=== PATIENT | male | born 1950 | race Two or more races ===

== ENCOUNTER → 2020-08-03 09:28 | Outpatient (BNVA) | payer MEDICARE, SELFPAY | PROVIDERS: PCP Internal Medicine Geriatric Medicine; Visit Provider Internal Medicine Cardiovascular Disease | DX: I48.0 Paroxysmal atrial fibrillation (principal); I34.0 Nonrheumatic mitral (valve) insufficiency; I10 Essential (primary) hypertension; Z79.01 Long term (current) use of anticoagulants | CPT/HCPCS: 93005; 99212 ==

== ENCOUNTER 2020-08-17 08:22 | Outpatient (REF) | payer MEDICARE, SELFPAY ==
[2020-08-17 10:35] LABS: Alanine Aminotransferase 30 U/L (0-40); Albumin Level 3.8 g/dL (3.5-5.0); Alkaline Phosphatase 79 U/L (39-117); Anion Gap 12 (12-20); Aspartate Amino Transferase 18 U/L (5-37); Bilirubin Total 0.5 mg/dL (0.0-1.0); Blood Urea Nitrogen 27 mg/dL (9-16); Calcium 8.4 mg/dL (8.4-10.2); Carbon Dioxide 25 mmol/L (22-29); Chloride 109 mmol/L (96-108); Estimated Glomerular Filt Rate 33; Glucose Random 97 mg/dL (60-115); Potassium 4.9 mmol/l (3.3-5.1); Sodium 141 mmol/L (135-145); Total Protein 6.6 g/dL (6.5-8.0); Uric Acid 9.9 mg/dL (3.4-7.0)
== END 2020-08-17 08:23 | disposition home or self-care (01) ==
LOC: HO.LAB 08:22
PROVIDERS: PCP Internal Medicine Geriatric Medicine; Visit Provider Student in an Organized Health Care Education/Training Program
DX: M10.9 Gout, unspecified (principal); M25.562 Pain in left knee
CPT/HCPCS: 36415; 80053; 84550

== ENCOUNTER → 2020-08-21 13:49 | Outpatient (BNVA) | payer MEDICARE, SELFPAY | PROVIDERS: PCP Internal Medicine Geriatric Medicine; Referring Provider Internal Medicine Geriatric Medicine; Visit Provider Student in an Organized Health Care Education/Training Program | DX: M1A.39X0 Chronic gout due to renal impairment, multiple sites, without tophus (tophi) (principal) | CPT/HCPCS: Q3014 ==

== ENCOUNTER 2020-09-01 08:14 | Outpatient (REF) | payer MEDICARE, SELFPAY ==
[2020-09-01 08:40] LABS: MANUAL DIFF FLAG NO
[2020-09-01 08:44] LABS: Basophils Percent Auto 0.9 % (0-2); Eosinophils Absolute Auto 0.1 X10*3/uL (0.0-0.4); Eosinophils Percent Auto 2.3 % (0-4); Hematocrit 36.3 % (42-52); Hemoglobin 11.9 g/dl (14.0-18.0); Imm Gran Abs Auto 0.01 X10*3/uL (0.00-0.03); Imm Gran Pct Auto 0.2 % (0.0-0.4); Lymphocytes Absolute Auto 1.2 X10*3/uL (1.2-4.9); Lymphocytes Percent Auto 28.4 % (20-40); Mean Corpuscular HGB Conc 32.8 g/dl (31.0-36.0); Mean Corpuscular Hemoglobin 31.2 pg (27.0-33.0); Mean Platelet Volume 10.7 fL (9.4-12.4); Monocytes Absolute Auto 0.4 X10*3/uL (0.1-1.2); Monocytes Percent Auto 9.7 % (2-11); Neutrophils Absolute Auto 2.5 X10*3/uL (2.0-8.3); Neutrophils Percent Auto 58.5 % (45-73); Platelet Count 165 X10*3/uL (160-400); Red Blood Count 3.82 X10*6/uL (4.60-5.80); Red Cell Distribution Width 12.8 % (11.0-16.0); White Blood Count 4.3 X10*3/uL (4.8-10.8)
[2020-09-01 09:23] LABS: Albumin Level 3.8 g/dL (3.5-5.0); Anion Gap 11 (12-20); Blood Urea Nitrogen 22 mg/dL (9-16); Calcium 8.3 mg/dL (8.4-10.2); Carbon Dioxide 27 mmol/L (22-29); Chloride 108 mmol/L (96-108); Estimated Glomerular Filt Rate 34; Magnesium 1.5 mg/dL (1.6-2.6); Phosphorus 3.7 mg/dL (2.7-4.5); Potassium 4.3 mmol/l (3.3-5.1); Sodium 142 mmol/L (135-145)
[2020-09-01 09:30] LABS: Glucose Urine UA NEG (NEG); Leukocyte Esterase Urine NEG (NEG); Nitrite Urine NEG (NEG); Urine Blood NEG (NEG); Urine Ketones NEG (NEG); Urine Protein 1+ MG/DL (NEG-TRACE)
[2020-09-01 09:33] LABS: Appearance Urine CLEAR; Color Urine YELLOW
[2020-09-01 09:53] LABS: Creatinine Urine 106.62 mg/dL; Protein/Creatinine Ratio, Ur 0.29 (<0.2); Total Protein Urine Random 31 mg/dL (<12)
[2020-09-01 09:54] LABS: Creatinine Urine 106.45 mg/dL; Microalbum/Creatinine Ratio Ur 189.7 ug/mg cr; Total Protein Urine Random 31 mg/dL (<12)
[2020-09-01 10:00] LABS: RBC Urine 0-2 /HPF (0); Squamous Epithelial Cell Urine 1+ /LPF; WBC Urine 0-2 /HPF (0-4)
[2020-09-01 10:01] LABS: Renal Epithelial Cells Urine TRACE /LPF
[2020-09-01 10:54] LABS: Renal w Reflex Lab Use Only Order verified
[2020-09-02 15:52] LABS: Calcium (PTHI) 8.5 mg/dL (8.6-10.3); PTHI 101 pg/mL (14-64)
== END 2020-09-01 08:15 | disposition home or self-care (01) ==
LOC: HO.LAB 08:14
PROVIDERS: Absent Provider Student in an Organized Health Care Education/Training Program; PCP Internal Medicine Geriatric Medicine; Visit Provider Internal Medicine Nephrology
DX: I13.0 Hypertensive heart and chronic kidney disease with heart failure and stage 1 through stage 4 chronic kidney disease, or unspecified chronic kidney disease (principal); I50.9 Heart failure, unspecified; N18.4 Chronic kidney disease, stage 4 (severe); N20.0 Calculus of kidney; N28.1 Cyst of kidney, acquired; M10.9 Gout, unspecified
CPT/HCPCS: 36415; 80051; 81001; 82040; 82043; 82306; 82310; 82565; 83735; 83970; 84100; 84156; 84520; 84550; 85025

== ENCOUNTER 2020-10-09 09:47 | Outpatient (REF) | payer MEDICARE, SELFPAY ==
--- NOTE | 2020-10-13 08:11 | MHC.AU.P13 ---
Adult Audiological Evaluation Date of Visit: 10/09/20 Volunteer Services Assistant Used: Palestinian- In Person Reason for Appointment: Audiologic evaluation due to decreased hearing ability. Colby reports he was evaluated by Goggles Assembler Dr. Garg a few years ago. Hearing aids were recommended, but never pursued. Colby also notes he has a long-standing history of sinus problems with significant congestion which has not been treated. Does patient feel they have a hearing loss?: Yes If Yes, Which Ear?: Both Ears Has hearing been tested previously?: Yes Previous Hearing Test Results: 11/02/2017 Dr. Garg Normal to borderline normal hearing thresholds at 250-2000 Hz sloping to a moderate high frequency hearing loss. Bone conduction testing was not performed so the type of hearing loss is not known. Hearing Handicap Inventory: HHIE SCORE: 32 Based on HHIE score, patient has: Severe perceived hearing handicap Ear History: Family History of Hearing Loss?: Yes Recent Ear Infections: Both Ears History of Ear Wax Buildup: Both Ears Ear used on the phone: Right Ear Blocked/Full Sensation in Ear(s): Both Ears History of occupational noise exposure?: No Medical History: Medical History: Cancer Heart Problems High Blood Pressure Thyroid Disease Chronic Kidney Disease Medication List: Veltassa, Metoproolol, Xarelto, Citracal, Multaq, Atorvastatin, Doxazosin, Lorazepam, Vitamin D, Acetaminophen, Flonase (as needed) Otoscopy: Right Ear: Unremarkable Left Ear: Unremarkable Tympanometry: Tympanometry performed due to: To assess integrity of the middle ear system Right Ear: Normal Middle Ear System (Type A) Left Ear: Normal Middle Ear System (Type A) Otoacoustic Emissions Right Ear Results: Not performed at today's visit. Left Ear Results: Not performed at today's visit. Hearing Evaluation: Transducer(s) Used: Insert Earphones Bone Conduction Method: Conventional Audiometry Stimuli Used: Pure Tones Right Ear: Description of Hearing: Mild rising to borderline normal conductive hearing loss Left Ear: Description of Hearing: Mild rising to borderline normal conductive hearing loss Speech Recognition Threshold (SRT): Method Used: Monitored Live Voice Stimuli Used: Spondee Words Right Ear: 20 dB HL Left Ear: 20 dB HL Word Discrimination: Method: Monitored Live Voice Word Lists Used: Lista Bisil?bica (Palestinian) Right Ear: 100% at 60 dB HL Left Ear: 100% at 60 dB HL Comparison: Compared to most recent evaluation: Compared to 2018, the low frequency thresholds have decreased and the high frequencies have improved overall 10-15 dB. Recommendations: Audiological re-evaluation in one year. Will send a reminder card. Due to the conductive hearing loss and history of significant congestion and sinus problems, medical consultation/treatment with an Goggles Assembler is advised. Hearing aids are not recommended at this time. Communication strategies were discussed. Diagnosis: Primary Diagnosis: H90.0 Conductive Hearing Loss, Bilateral Services Performed: Comprehensive Audiological Evaluation (CPT 72077) Tympanometry (CPT 73180) Signature: Provider: Deisy Bajwa, CCC-A
== END 2020-10-09 09:48 | disposition home or self-care (01) ==
LOC: HO.SH 09:47
PROVIDERS: Visit Provider Internal Medicine Geriatric Medicine
DX: H90.0 Conductive hearing loss, bilateral (principal)
CPT/HCPCS: 92557; 92567

== ENCOUNTER → 2020-10-27 09:43 | Outpatient (BNVA) | payer MEDICARE, SELFPAY | PROVIDERS: PCP Internal Medicine Geriatric Medicine; Visit Provider Internal Medicine Cardiovascular Disease | DX: R94.31 Abnormal electrocardiogram [ECG] [EKG] (principal) | CPT/HCPCS: 93005 ==

== ENCOUNTER → 2021-01-06 09:06 | Outpatient (REF) | payer MEDICARE, SELFPAY ==
--- NOTE | 2021-01-06 09:09 | CA_ITS ---
Transthoracic Echocardiogram Patient (Last, First, Middle): Colby Hardin, Gender: Male Date of : 1950 Age: 70 Procedure Date: 01/06/2021 Procedure Type: Transthoracic Echocardiogram Location: OP Height: 175.26 cm Weight: 110.68 kg BSA: 2.25 m2 Heart Rate: bpm BP: 159 / 88 mmHg Cell Maker: MEGAN Referring MD: Rangel Funez MD Peer Health Promoter: Rangel Funez MD Symptoms: I48.0 - Paroxysmal atrial fibrillation Study Quality: Fair ECG Rhythm: Sinus Conclusions: - 1. Low normal LV systolic function with grade 1 diastolic dysfunction 2. Mild aortic regurgitation 3. At least moderate eccentric mitral regurgitation 4. Normal RV systolic pressure 5. No pericardial effusion Findings Left Ventricle Normal left ventricular cavity size. There is normal left ventricular wall thickness. The left ventricular systolic function is low normal. The visually estimated ejection fraction is between 50-55%. Spectral Doppler is indicative of an impaired relaxation filling pattern. E/E prime ratio is <8, consistent with normal filling pressures. Right Ventricle Normal right ventricular cavity size and systolic function. Atria The left atrium is likely dilated. Interatrial shunt cannot be excluded. The right atrium is normal in size. Aortic Valve The aortic valve structure and function is likely normal. There is no aortic valve stenosis. There is mild aortic valve regurgitation. Mitral Valve There is mild anterior and posterior mitral leaflet thickening. There is moderate mitral valve regurgitation. The mitral regurgitation jet is directed anteriorly. There is no mitral valve stenosis. Pulmonic Valve The pulmonic valve was not well visualized. Tricuspid Valve Likely normal tricuspid valve structure and function. There is trace tricuspid valve regurgitation. The right ventricular systolic pressure is normal. The right ventricular systolic pressure is 29 mmHg. Normal right atrial pressure. There is no evidence of pulmonary hypertension. Great Vessels The pulmonary artery was not well visualized. There is mild dilatation of the ascending aorta measuring 3.94 cm. Venous The inferior vena cava is normal in size and collapses greater than 50% with inspiration. Pericardium/Pleural There is no evidence of pericardial effusion. Prior Study Comparison No significant change compared to prior study. Measurements 2D Linear Measurements IVSd: 0.77 0.6-0.9/0.6-1.0 cm LVIDd: 5.54 3.9-5.3/4.2-5.9 cm LVIDs: 3.99 2.0-3.6 cm LVPWd: 1.03 0.7-1.1 cm Ao Root: 3.17 2.1-3.5 cm LV Mass: 235.05 67-162/88-224 g LVOT Diam: 2.16 3.0+(-)1.3 cm Mitral Valve MV Pk E: 0.82 MV PK A: 0.83 MV Decel Time: 173.75 E/A: 0.99 Decel [place]: 4.71 Aortic Valve AoV Pk Freedom: 1.08 AoV Pk Grad: 4.71 AI Pk Freedom: 3.08 AI [place]: 1.77 LVOT LVOT Pk Freedom: 0.93 LVOT Mn Freedom: 0.62 LVOT VTI: 0.20 LVOT Pk Grad: 3.48 LVOT Mn Grad: 1.75 LVOT Diam: 2.16 LVOT Area: 3.68 Diastolic Function MV Pk E: 0.82 MV Pk A: 0.83 E/A: 0.99 Tricuspid Valve TR Pk Freedom: 2.58 TR Pk Grad: 26.65 RA Press: 3.00 RVSP: 29.00 Great Vessels Aorta Ao Root-2D: 3.17 2.0-3.7 cm Ao Asc: 3.94 2.1-3.4 cm Updated in Other Vendor System with Status of Final Rangel Funez MD electronically signed on 01/06/2021 3:15:00 PM with status of Final
== END ==
LOC: HO.CARD 09:06
PROVIDERS: Visit Provider Internal Medicine Cardiovascular Disease
DX: I48.0 Paroxysmal atrial fibrillation (principal); I34.0 Nonrheumatic mitral (valve) insufficiency; I10 Essential (primary) hypertension
CPT/HCPCS: 93306

== ENCOUNTER 2021-01-19 09:40 | Emergency (ER) | payer MEDICARE, SELFPAY ==
[2021-01-19 10:06] VITALS: BP 186/106; BMI 36.1
--- NOTE | 2021-01-19 11:26 | ED_ITS ---
HPI - General Adult General Chief complaint: Extremity Injury, Lower <CRISTI Sanchez - Last Filed: 01/19/21 12:21> Stated complaint: Ankle Inflammation <CRISTI Sanchez Last Filed: 01/19/21 12:21> Time Seen by Provider: 01/19/21 11:25 <CRISTI Sanchez Last Filed: 01/19/21 12:21> Source: patient <CRISTI Sanchez - Last Filed: 01/19/21 12:21> Mode of arrival: ambulatory <CRISTI Sanchez Last Filed: 01/19/21 12:21> Limitations: no limitations <CRISTI Sanchez Last Filed: 01/19/21 12:21> History of Present Illness HPI narrative: 70 y/o male with history of paroxysmal atrial fibrillation on Xarelto, CKD, mitral regurgitation, history of gout in his left foot & HTN who presents to the ED with 4 days of left ankle pain and swelling. No trauma or injury. He has had several episodes of gout in his left foot in the past, usually 1-2 episodes per year. He was previously on medication for this however he did not tolerate it. He follows with a Teenage Program Director. He denies any objective fevers but has been hot and cold. He states he was started on Prednisone 3 days ago with no improvement. <CRISTI Sanchez - Last Filed: 01/19/21 12:21> MD complaint: left ankle pain and swelling <CRISTI Sanchez - Last Filed: 01/19/21 12:21> Onset (ago): day(s) (4) <CRISTI Sanchez - Last Filed: 01/19/21 12:21> Location: left and lower extremity <CRISTI Sanchez Last Filed: 01/19/21 12:21> Radiation: non-radiation <CRISTI Sanchez Last Filed: 01/19/21 12:21> Severity: severe and similar to prior episodes <CRISTI Sanchez Last Filed: 01/19/21 12:21> Severity scale (1-10): 8 <CRISTI Sanchez - Last Filed: 06/15/21 12:21> Quality: aching and sharp <CRISTI Sanchez - Last Filed: 01/19/21 12:21> Pain Consistency: constant <CRISTI Sanchez Last Filed: 01/19/21 12:21> Relieving factors: rest <CRISTI Sanchez - Last Filed: 01/19/21 12:21> Exacerbating factors: movement <CRISTI Sanchez Last Filed: 01/19/21 12:21> Associated symptoms: denies other symptoms <CRISTI Sanchez Last Filed: 01/19/21 12:21> Treatments prior to arrival: other (prednisone) <CRISTI Sanchez Last Filed: 01/19/21 12:21> Related Data Home medications: Home Medications Medication Instructions Recorded Confirmed acetaminophen 500 mg tablet 0 mg PO 08/03/20 01/28/21 atorvastatin 20 mg tablet 20 mg PO DAILY 08/03/20 01/28/21 benzonatate 100 mg capsule 100 mg PO 08/03/20 01/28/21 doxazosin 2 mg tablet 2 mg PO DAILY 08/03/20 01/28/21 ergocalciferol (vitamin D2) 1,250 1,250 mcg PO QWEEK 08/03/20 01/28/21 mcg (50,000 unit) capsule lorazepam 0.5 mg tablet 0.5 mg PO BID PRN 08/03/20 01/28/21 sodium chloride 0.65 % nasal spray 1 - 2 spray INTRANASAL TID-QID PRN 08/03/20 01/28/21 aerosol sodium zirconium cyclosilicate 10 10 g PO DAILY 08/03/20 01/28/21 gram oral powder packet Previous Rx's Medication Instructions Recorded rivaroxaban 15 mg tablet 15 mg PO DAILY #90 tab 05/20/20 metoprolol succinate 25 mg 25 mg PO DAILY #90 tab 08/17/20 tablet,extended release 24 hr dronedarone 400 mg tablet 400 mg PO BID #180 tab 10/05/20 prednisone 10 mg tablet 10 mg PO DAILY #10 tab 01/15/21 colchicine See Rx Instructions .ROUTE 01/19/21 .COMPLEX #3 tab methylprednisolone [Medrol (Vincent)] 4 mg PO PER PKG DIR #21 ea 01/19/21 allopurinol 100 mg tablet 50 mg PO DAILY #15 tab 01/21/21 <CRISTI Sanchez - Last Filed: 01/19/21 12:21> Allergies/adverse reactions: Allergies Allergy/AdvReac Type Severity Reaction Status Date / Time codeine Allergy Intermediate upset Verified 01/28/21 11:06 stomach morphine [MORPHINE] Allergy Unknown GI DISTRESS Verified 01/28/21 11:06 tramadol [TRAMADOL] Allergy Unknown HEADACHES Verified 01/28/21 11:06 <CRISTI Sanchez - Last Filed: 01/19/21 12:21> Review of Systems Review of Systems: Constitutional: No Fever, No Chills Cardiovascular: No Chest Pain, No SOB Respiratory: No Cough, No Sputum Gastrointestinal: No Nausea, No Vomiting Genitourinary: No Dysuria, No Urinary Frequency, No Hematuria Musculoskeletal: + joint pain, No Myalgias Skin: No Skin Lesions, No rash Neuro: No Weakness, No Numbness, No Dizziness, No Headache Psych: No Anxiety/Panic, No Depression Heme/Lymph: No Bruising, No Lymphadenopathy Endocrine: No Polyuria, No Polydipsia <CRISTI Sanchez Last Filed: 01/19/21 12:21> [facility] Past Medical History Medical History: Medical History Chronic kidney disease Gout HTN (hypertension) Mitral regurgitation Paroxysmal atrial fibrillation <CRISTI Sanchez Last Filed: 01/19/21 12:21> Surgical History: Surgical History Hx of appendectomy Hx of cataract surgery Hx of cholecystectomy Hx of hernia repair Hx of knee surgery <CRISTI Sanchez - Last Filed: 01/19/21 12:21> Family History Family History: Family History Father Colon cancer Mother No problems noted. <CRISTI Sanchez Last Filed: 01/19/21 12:21> Social History Social History: Social History Alcohol intake: former Patient Tobacco Use Status: Former Tobacco user Cigarettes Per Day: 2 Years Smoked: 1 <CRISTI Sanchez Last Filed: 01/19/21 12:21> Physical Exam Vital Signs: Vital Signs: Last Vital Signs BP 186/106 H 01/19/21 10:06 Body Mass Index 36.1 Appearance: Alert. Oriented X3. No acute distress. HEENT: normal inspection CVS: Normal heart rate and rhythm. Pulses normal. Respiratory: No respiratory distress. Skin: Skin warm and dry. Normal skin color. Normal skin turgor. No rashes. Extremities: left ankle with swelling medially and laterally. significant tenderness with minimal ROM. warmth appreciated without any significant erythema. NV intact distally. No calf tenderness of swelling. Neuro: Oriented X 3. No motor deficit. No sensory deficit. <CRISTI Sanchez - Last Filed: 01/19/21 12:21> Vital Signs: Last Vital Signs BP 186/106 H 01/19/21 10:06 Body Mass Index 36.1 <Ney Aponte MD - Last Filed: 02/24/21 16:46> Course Course Course Narrative: 70 y/o male presenting with left ankle pain and swelling x4 days. Does not appear to be septic joint given no fevers, no significant redness. Joint is the same as his previous gout attacks. Will treat with colchicine and higher dose of steroids in a tapering fashion to help prevent recurrence. Recommend following up with his Teenage Program Director. <CRISTI Sanchez - Last Filed: 01/19/21 12:21> I have reviewed the chart <Ney Aponte MD - Last Filed: 02/24/21 16:46> Discharge Plan Discharge Clinical Impression: Gout <CRISTI Sanchez - Last Filed: 01/19/21 12:21> Patient Disposition: Home, Self-Care <CRISTI Sanchez - Last Filed: 01/19/21 12:21> Instructions: Gout (ED) <CRISTI Sanchez - Last Filed: 01/19/21 12:21> Additional Instructions: Start taking your Medrol Vincent STARTING TOMORROW. 1st dose was given in the ER today. Take until all pills are gone out of the pack. In 3 days if you are still in pain you can take another course of colchicine - 2 tablets once and then 1 tablet 1 hour later. Recommend following up with your Teenage Program Director. Elevate your ankle whenever possible. If you have worsening pain, swelling, redness or any other concerning symptom come back to the ER for further evaluation. Empiece a betito west Medrol Vincent A PARTIR DE MA?MANUEL. La primera dosis se administr? hoy en la gonzalo de emergencias. T?jim hasta que se hayan agotado todas las p?ldoras del paquete. En 3 d?as, si todav?a tiene dolor, puede betito otro ciclo de colchicina: 2 tabletas nahid vez y luego 1 tableta 1 hora m?s tarde. Recomiende hacer un seguimiento con west reumat?logo. Eleve west tobillo siempre que sea posible. Si tiene un dolor que empeora, hinchaz?n, enrojecimiento o cualquier otro s?ntoma preocupante, regrese a la gonzalo de emergencias para nahid evaluaci?n adicional. <CRISTI Sanchez - Last Filed: 01/19/21 12:21> Prescriptions: New colchicine 0.6 mg tablet See Rx Instructions .ROUTE .COMPLEX Qty: 3 RF: 0 methylprednisolone [Medrol (Vincent)] 4 mg tablets,dose pack 4 mg PO PER PKG DIR Qty: 21 RF: 0 No Action rivaroxaban [Xarelto] 15 mg tablet 15 mg PO DAILY Qty: 90 RF: 2 metoprolol succinate 25 mg tablet extended release 24 hr 25 mg PO DAILY Qty: 90 RF: 4 dronedarone [Multaq] 400 mg tablet 400 mg PO BID Qty: 180 RF: 1 prednisone 10 mg tablet 10 mg PO DAILY Qty: 10 RF: 0 sodium chloride 0.65 % aerosol,spray 1 - 2 spray intranasal TID-QID PRN (Reason: congestion) RF: 0 benzonatate 100 mg capsule 100 mg PO RF: 0 atorvastatin 20 mg tablet 20 mg PO DAILY RF: 0 ergocalciferol (vitamin D2) 1,250 mcg (50,000 unit) capsule 1,250 mcg PO QWEEK RF: 0 Lokelma 10 gram powder in packet 10 g PO DAILY RF: 0 doxazosin 2 mg tablet 2 mg PO DAILY RF: 0 lorazepam 0.5 mg tablet 0.5 mg PO BID PRNRF: 0 acetaminophen 500 mg tablet 0 mg PO RF: 0 allopurinol 100 mg tablet 50 mg PO DAILY Qty: 15 RF: 2 <CRISTI Sanchez - Last Filed: 01/19/21 12:21> Interventions: ED Discharge Assessment Last Done: 01/19/21 13:17 <CRISTI Sanchez - Last Filed: 01/19/21 12:21> Discharge Date/Time: 01/19/21 13:22 <CRISTI Sanchez - Last Filed: 01/19/21 12:21>
[2021-01-19] MEDS: predniSONE 20 MG TABLET 60 MG PO (12:11)
[2021-01-19] MEDS: Colchicine 0.6 MG TABLET 1.2 MG PO (12:11)
[2021-01-19] MEDS: Colchicine 0.6 MG TABLET PO (13:12)
== END 2021-01-19 13:22 | disposition home or self-care (01) ==
PROVIDERS: Emergency Provider Emergency Medicine; PCP Internal Medicine Geriatric Medicine
DX: M10.072 Idiopathic gout, left ankle and foot (principal); I48.0 Paroxysmal atrial fibrillation; I12.9 Hypertensive chronic kidney disease with stage 1 through stage 4 chronic kidney disease, or unspecified chronic kidney disease; N18.9 Chronic kidney disease, unspecified; Z79.01 Long term (current) use of anticoagulants; Z79.899 Other long term (current) drug therapy
CPT/HCPCS: 99283

== ENCOUNTER 2021-01-21 08:55 | Outpatient (REF) | payer MEDICARE, SELFPAY ==
[2021-01-21 10:29] LABS: Alanine Aminotransferase 23 U/L (0-40); Alkaline Phosphatase 77 U/L (39-117); Anion Gap 12 (12-20); Aspartate Amino Transferase 23 U/L (5-37); Bilirubin Total 0.3 mg/dL (0.0-1.0); Blood Urea Nitrogen 40 mg/dL (9-16); Calcium 8.3 mg/dL (8.4-10.2); Carbon Dioxide 22 mmol/L (22-29); Chloride 112 mmol/L (96-108); Estimated Glomerular Filt Rate 31; Glucose Random 85 mg/dL (60-115); Potassium 4.9 mmol/L (3.3-5.1); Sodium 141 mmol/L (135-145); Total Protein 6.6 g/dL (6.5-8.0); Uric Acid 9.4 mg/dL (3.4-7.0)
== END 2021-01-21 08:56 | disposition home or self-care (01) ==
LOC: HO.LAB 08:55
PROVIDERS: PCP Internal Medicine Geriatric Medicine; Visit Provider Student in an Organized Health Care Education/Training Program
DX: M1A.39X0 Chronic gout due to renal impairment, multiple sites, without tophus (tophi) (principal); Z87.891 Personal history of nicotine dependence; Z79.899 Other long term (current) drug therapy
CPT/HCPCS: 36415; 80053; 84550; 99212

== ENCOUNTER → 2021-01-28 10:23 | Outpatient (BNVA) | payer MEDICARE, SELFPAY | PROVIDERS: PCP Internal Medicine Geriatric Medicine; Referring Provider Internal Medicine Geriatric Medicine; Visit Provider Internal Medicine Cardiovascular Disease | DX: I48.0 Paroxysmal atrial fibrillation (principal); I34.0 Nonrheumatic mitral (valve) insufficiency | CPT/HCPCS: 93005; 99212 ==

== ENCOUNTER 2021-03-02 07:29 | Outpatient (REF) | payer MEDICARE, SELFPAY ==
[2021-03-02 08:12] LABS: MANUAL DIFF FLAG NO
[2021-03-02 08:17] LABS: Basophils Percent Auto 0.7 % (0-2); Eosinophils Absolute Auto 0.1 X10*3/uL (0.0-0.4); Eosinophils Percent Auto 1.8 % (0-4); Hematocrit 35.4 % (42-52); Hemoglobin 11.5 g/dl (14.0-18.0); Imm Gran Abs Auto 0.02 X10*3/uL (0.00-0.03); Imm Gran Pct Auto 0.5 % (0.0-0.4); Lymphocytes Absolute Auto 1.3 X10*3/uL (1.2-4.9); Lymphocytes Percent Auto 30.2 % (20-40); Mean Corpuscular HGB Conc 32.5 g/dl (31.0-36.0); Mean Corpuscular Hemoglobin 30.7 pg (27.0-33.0); Mean Corpuscular Volume 94.7 fL (80-98); Monocytes Absolute Auto 0.4 X10*3/uL (0.1-1.2); Monocytes Percent Auto 9.5 % (2-11); Neutrophils Absolute Auto 2.6 X10*3/uL (2.0-8.3); Neutrophils Percent Auto 57.3 % (45-73); Platelet Count 174 X10*3/uL (160-400); Red Blood Count 3.74 X10*6/uL (4.60-5.80); Red Cell Distribution Width 12.5 % (11.0-16.0); White Blood Count 4.4 X10*3/uL (4.8-10.8)
[2021-03-02 08:31] LABS: Albumin Level 3.8 g/dL (3.5-5.0); Anion Gap 13 (12-20); Blood Urea Nitrogen 26 mg/dL (9-16); Calcium 8.3 mg/dL (8.4-10.2); Carbon Dioxide 25 mmol/L (22-29); Chloride 111 mmol/L (96-108); Estimated Glomerular Filt Rate 29; Magnesium 1.6 mg/dL (1.6-2.6); Phosphorus 3.5 mg/dL (2.7-4.5); Potassium 4.9 mmol/L (3.3-5.1); Sodium 144 mmol/L (135-145); Total Protein 6.3 g/dL (6.5-8.0)
[2021-03-02 08:38] LABS: Renal w Reflex Lab Use Only Order verified
[2021-03-02 08:54] LABS: Glucose Urine UA NEG (NEG); Leukocyte Esterase Urine NEG (NEG); Nitrite Urine NEG (NEG); Specific Gravity - Urine 1.015 (1.005-1.025); Urine Blood NEG (NEG); Urine Ketones NEG (NEG); Urine Protein TRACE MG/DL (NEG-TRACE)
[2021-03-02 09:02] LABS: Appearance Urine CLEAR; Color Urine YELLOW
[2021-03-02 09:19] LABS: RBC Urine 0-2 /HPF (0); WBC Urine 0-2 /HPF (0-4)
[2021-03-02 09:43] LABS: Creatinine Urine 113.16 mg/dL; Microalbum/Creatinine Ratio Ur 145.8 ug/mg cr; Protein/Creatinine Ratio, Ur 0.23 (<0.2); Total Protein Urine Random 26 mg/dL (<12)
[2021-03-03 13:05] LABS: Calcium (PTHI) 8.5 mg/dL (8.6-10.3); PTHI 148 pg/mL (14-64)
== END 2021-03-02 07:30 | disposition home or self-care (01) ==
LOC: HO.LAB 07:29
PROVIDERS: PCP Internal Medicine Geriatric Medicine; Visit Provider Internal Medicine Nephrology
DX: I13.0 Hypertensive heart and chronic kidney disease with heart failure and stage 1 through stage 4 chronic kidney disease, or unspecified chronic kidney disease (principal); N28.1 Cyst of kidney, acquired; M10.9 Gout, unspecified; N20.0 Calculus of kidney; N18.4 Chronic kidney disease, stage 4 (severe); I50.9 Heart failure, unspecified
CPT/HCPCS: 36415; 80051; 81001; 82040; 82043; 82306; 82310; 82565; 83735; 83970; 84100; 84155; 84156; 84520; 85025

== ENCOUNTER 2021-03-17 09:17 | Outpatient (REF) | payer MEDICARE, SELFPAY ==
--- NOTE | ~2021-03-17 | XR_ITS ---
EXAMINATION: XR HAND, LEFT CLINICAL INFORMATION: Left thumb and hand pain. COMPARISON: None TECHNIQUE: PA, lateral, and oblique views of the left hand. FINDINGS: The bones and soft tissues are normal. No fracture. Alignment is anatomic. Joint spaces are maintained. No erosions or soft tissue calcifications. XR/XR hand LT min 3V IMPRESSION: Unremarkable left hand exam.
== END 2021-03-17 09:18 | disposition home or self-care (01) ==
LOC: HO.XRAY 09:17
PROVIDERS: Absent Provider Internal Medicine Geriatric Medicine; PCP Internal Medicine Geriatric Medicine; Visit Provider Nurse Practitioner Primary Care
DX: M79.645 Pain in left finger(s) (principal)
CPT/HCPCS: 73130

== ENCOUNTER → 2021-04-22 09:47 | Outpatient (BNVA) | payer MEDICARE, SELFPAY | PROVIDERS: PCP Internal Medicine Geriatric Medicine; Referring Provider Internal Medicine Geriatric Medicine; Visit Provider Internal Medicine Cardiovascular Disease ==

== ENCOUNTER 2021-08-19 08:50 | Outpatient (REF) | payer MEDICARE, SELFPAY ==
[2021-08-19 09:43] LABS: Alanine Aminotransferase 13 U/L (0-40); Albumin Level 3.6 g/dL (3.5-5.0); Alkaline Phosphatase 64 U/L (39-117); Anion Gap 11 (12-20); Aspartate Amino Transferase 12 U/L (5-37); Bilirubin Total 0.6 mg/dL (0.0-1.0); Blood Urea Nitrogen 26 mg/dL (9-16); Calcium 8.5 mg/dL (8.4-10.2); Carbon Dioxide 26 mmol/L (22-29); Chloride 108 mmol/L (96-108); Estimated Glomerular Filt Rate 31; Glucose Random 109 mg/dL (60-115); Potassium 4.4 mmol/L (3.3-5.1); Sodium 141 mmol/L (135-145); Total Protein 6.1 g/dL (6.5-8.0); Uric Acid 7.6 mg/dL (3.4-7.0)
== END 2021-08-19 08:51 | disposition home or self-care (01) ==
LOC: HO.LAB 08:50
PROVIDERS: PCP Internal Medicine Geriatric Medicine; Visit Provider Nurse Practitioner Family
DX: M1A.39X0 Chronic gout due to renal impairment, multiple sites, without tophus (tophi) (principal)
CPT/HCPCS: 36415; 80053; 84550

== ENCOUNTER → 2021-08-23 09:15 | Outpatient (BNVA) | payer MEDICARE, SELFPAY | PROVIDERS: PCP Internal Medicine Geriatric Medicine; Referring Provider Internal Medicine Geriatric Medicine; Visit Provider Internal Medicine Cardiovascular Disease | DX: I48.0 Paroxysmal atrial fibrillation (principal); I34.0 Nonrheumatic mitral (valve) insufficiency | CPT/HCPCS: 93005; 99212 ==

== ENCOUNTER 2021-09-08 11:10 | Outpatient (REF) | payer MEDICARE, SELFPAY ==
--- NOTE | ~2021-09-08 | US_ITS ---
EXAMINATION: US VENOUS ULTRASOUND WITH DOPPLER LOWER EXTREMITY, RIGHT CLINICAL INFORMATION: Right leg pain and swelling COMPARISON: None TECHNIQUE: Ultrasound of the deep veins is performed from the hip to the calf with compression sonography and color and pulse Doppler assessment. Spectral analysis with color-flow imaging is performed. FINDINGS: There is normal venous compression and respiratory variation and augmented flow. The visualized common femoral vein, superficial femoral vein, profunda femoral vein, popliteal vein, and the trifurcation region shows no evidence of deep venous thrombosis. There is no significant popliteal fossa cyst. US/US venous duplex LE RT IMPRESSION: No DVT demonstrated in the right lower extremity.
== END 2021-09-08 11:11 | disposition home or self-care (01) ==
LOC: HO.US 11:10
PROVIDERS: Absent Provider Internal Medicine Geriatric Medicine; PCP Internal Medicine Geriatric Medicine; Referring Provider Urology; Visit Provider Family Medicine
DX: M79.89 Other specified soft tissue disorders (principal)
CPT/HCPCS: 93971

== ENCOUNTER 2021-09-10 09:29 | Outpatient (REF) | payer MEDICARE, SELFPAY ==
[2021-09-10 10:26] LABS: Hematocrit 34.1 % (42.0-52.0); Hemoglobin 10.9 g/dl (14.0-18.0); Mean Corpuscular Hemoglobin 30.9 pg (27.0-33.0); Mean Corpuscular Volume 96.6 fL (80.0-98.0); Mean Platelet Volume 10.8 fL (9.4-12.4); Platelet Count 187 X10*3/uL (160-400); Red Blood Count 3.53 X10*6/uL (4.60-5.80); Red Cell Distribution Width 12.7 % (11.0-16.0); White Blood Count 4.6 X10*3/uL (4.8-10.8)
[2021-09-10 10:59] LABS: Appearance Urine CLEAR; Color Urine YELLOW; Glucose Urine UA NEG (NEG); Leukocyte Esterase Urine NEG (NEG); Nitrite Urine NEG (NEG); Specific Gravity - Urine 1.025 (1.005-1.025); Urine Blood NEG (NEG); Urine Ketones NEG (NEG); Urine Protein TRACE MG/DL (NEG-TRACE)
[2021-09-10 11:00] LABS: Albumin Level 3.5 g/dL (3.5-5.0); Anion Gap 12 (12-20); Blood Urea Nitrogen 22 mg/dL (9-16); Calcium 8.6 mg/dL (8.4-10.2); Carbon Dioxide 26 mmol/L (22-29); Chloride 109 mmol/L (96-108); Estimated Glomerular Filt Rate 35; Magnesium 1.5 mg/dL (1.6-2.6); Phosphorus 3.1 mg/dL (2.7-4.5); Potassium 4.9 mmol/L (3.3-5.1); Sodium 142 mmol/L (135-145)
[2021-09-10 11:03] LABS: Creatinine Urine 147.61 mg/dL; Microalbum/Creatinine Ratio Ur 107.7 ug/mg cr; Protein/Creatinine Ratio, Ur 0.22 (<0.2); Total Protein Urine Random 33 mg/dL (<12)
[2021-09-10 11:09] LABS: RBC Urine 0 /HPF (0); Squamous Epithelial Cell Urine TRACE /LPF; WBC Urine 0-2 /HPF (0-4)
[2021-09-13 12:52] LABS: Calcium (PTHI) 8.6 mg/dL (8.6-10.3); PTHI 102 pg/mL (14-64)
== END 2021-09-10 09:30 | disposition home or self-care (01) ==
LOC: HO.LAB 09:29
PROVIDERS: PCP Internal Medicine Geriatric Medicine; Visit Provider Internal Medicine Nephrology
DX: N18.32 Chronic kidney disease, stage 3b (principal)
CPT/HCPCS: 36415; 80051; 81001; 82040; 82043; 82306; 82310; 82565; 83735; 83970; 84100; 84156; 84520; 85027; 87086

== ENCOUNTER 2021-09-11 13:00 | Emergency (ER) | payer MEDICARE, SELFPAY ==
--- NOTE | ~2021-09-11 | XR_ITS ---
EXAMINATION: XR FOOT, RIGHT XR TIBIA AND FIBULA, RIGHT CLINICAL INFORMATION: Injury to the right foot and right leg. Evaluate for fracture. COMPARISON: Right foot and right ankle x-rays of 03/31/2014 TECHNIQUE: AP, lateral and oblique views of the right foot. AP and lateral views of the right tibia and fibula. FINDINGS: There is no evidence of acute fracture or dislocation in the right foot and right tibia and fibula. The bones are in normal alignment. Ankle mortise is intact. Knee joint alignment is maintained. Osseous mineralization is normal. No focal erosion is noted in the foot and ankle. No evidence of radiopaque foreign body or soft tissue air. No significant degenerative changes are noted. XR/XR tibia fibula RT 2V IMPRESSION: No evidence of acute fracture or dislocation in the right tibia and fibula and right foot.
--- NOTE | ~2021-09-11 | XR_ITS ---
EXAMINATION: XR FOOT, RIGHT XR TIBIA AND FIBULA, RIGHT CLINICAL INFORMATION: Injury to the right foot and right leg. Evaluate for fracture. COMPARISON: Right foot and right ankle x-rays of 03/31/2014 TECHNIQUE: AP, lateral and oblique views of the right foot. AP and lateral views of the right tibia and fibula. FINDINGS: There is no evidence of acute fracture or dislocation in the right foot and right tibia and fibula. The bones are in normal alignment. Ankle mortise is intact. Knee joint alignment is maintained. Osseous mineralization is normal. No focal erosion is noted in the foot and ankle. No evidence of radiopaque foreign body or soft tissue air. No significant degenerative changes are noted. XR/XR foot RT 2V IMPRESSION: No evidence of acute fracture or dislocation in the right tibia and fibula and right foot.
[2021-09-11 13:08] VITALS: BP 137/87; PULSE 89; RESP 16; TEMP 36.8; O2SAT 100; BMI 33.7
--- NOTE | 2021-09-11 13:26 | ED_ITS ---
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 No fevers, chills. Patient tells me on September 02 he was going down the stairs when he felt a cramping and pulling sensation and his right posterior calf. He reports since then he has had swelling and pain to the leg. He did see his primary care doctor and had an outpatient ultrasound on September 08 that was negative for any DVTs. Patient tells me he has been compliant with Xarelto and has not missed any doses. Reports he has had continued pain and swelling since then. Pain is worsened with weight-bearing. Related Data Home Medications Medication Instructions Recorded Confirmed acetaminophen 500 mg tablet 0 mg PO 08/03/20 08/23/21 atorvastatin 20 mg tablet 20 mg PO DAILY 08/03/20 08/23/21 benzonatate 100 mg capsule 100 mg PO 08/03/20 08/23/21 ergocalciferol (vitamin D2) 1,250 mcg PO QWEEK 08/03/20 08/23/21 1,250 mcg (50,000 unit) capsule lorazepam 0.5 mg tablet 0.5 mg PO BID PRN 08/03/20 08/23/21 sodium chloride 0.65 % nasal 1 - 2 spray INTRANASAL 08/03/20 08/23/21 spray TID-QID PRN aerosol doxazosin 2 mg tablet 4 mg PO DAILY tab 08/23/21 08/23/21 prednisone 10 mg tablet 10 mg PO DAILY PRN tab 08/23/21 08/23/21 sennosides 8.6 mg tablet 17.2 mg PO DAILY 08/23/21 08/23/21 (senna) Previous Rx's Medication Instructions Recorded metoprolol succinate 25 mg 25 mg PO DAILY #90 tab 08/17/20 tablet,extended release 24 hr dronedarone 400 mg tablet (Multaq) 400 mg PO BID #180 tab 04/05/21 allopurinol 100 mg tablet 50 mg PO DAILY #45 tab 08/19/21 rivaroxaban 15 mg tablet (Xarelto) 15 mg PO DAILY #90 tab 08/30/21 Allergies Allergy/AdvReac Type Severity Reaction Status Date / Time codeine Allergy Intermediate upset Verified 01/28/21 11:06 stomach morphine Allergy Unknown GI DISTRESS Verified 01/28/21 11:06 [MORPHINE] tramadol Allergy Unknown HEADACHES Verified 01/28/21 11:06 [TRAMADOL] Review of Systems Verdana 4l Review of Systems: Yes all other systems are reviewed and Verdana 4d are negative Verdana 4l Constitutional: Verdana 4d Constitutional: Verdana 4d Verdana 4d Reports no additional constitutional complaints, Denies body ache(s), Denies chills, Denies fever(s), Denies headache(s) and Denies weakness Verdana 4l Eyes: Verdana 4d Verdana 4d Eyes: Verdana 4d Reports no additional eye complaints and Denies change in vision Verdana 4l ENT: Verdana 4d Reports system reviewed and no additional complaints, except as documented, Denies dizziness, Denies headache(s), Denies nasal congestion, Denies nasal discharge and Denies neck pain Verdana 4l Cardiovascular: Verdana 4d Cardiovascular: Verdana 4d Verdana 4d Reports no additional cardiovascular complaints, Denies chest pain, Reports leg edema and Denies dyspnea Verdana 4l Respiratory: Verdana 4d Verdana 4d Respiratory: Verdana 4d Reports no additional respiratory complaints, Denies cough and Denies dyspnea Verdana 4l Gastrointestinal: Verdana 4d Gastrointestinal: Verdana 4d Verdana 4d Reports no additional gastrointestinal complaints, Denies abdominal pain, Denies diarrhea, Denies nausea and Denies vomiting Verdana 4l Genitourinary: Verdana 4d Verdana 4d Genitourinary: Verdana 4d Denies urinary incontinence Verdana 4l Musculoskeletal: Verdana 4d Musculoskeletal: Verdana 4d Verdana 4d Reports no additional musculoskeletal complaints, Denies back pain, Denies arthralgias, Denies joint swelling, Denies neck pain, Denies numbness and Denies tingling Verdana 4l Integumentary/Breasts: Verdana 4d Skin/Breast: Verdana 4d Verdana 4d Reports system reviewed and no additional complaints, except as docu, Reports swelling and Denies rash Verdana 4l Neurologic: Verdana 4d Reports system reviewed and no additional complaints, except as documented, Denies Abnormal speech present, Denies dizziness, Denies headache(s), Denies numbness, Denies tingling and Denies weakness PMFSH Past Medical History Attestation statement: The following information was validated with the patient. Source: old records reviewed and nursing notes reviewed Medical History Chronic kidney disease Gout HTN (hypertension) Mitral regurgitation Paroxysmal atrial fibrillation Surgical History Hx of appendectomy Hx of cataract surgery Hx of cholecystectomy Hx of hernia repair Hx of knee surgery Family History Family History Father Colon cancer Mother No problems noted. Social History Social History Alcohol intake: former Patient Tobacco Use Status: Former Tobacco user Cigarettes Per Day: 2 Years Smoked: 1 Advance Directives: No Advance Directives Information Provided: No Physical Exam Verdana 4l Vital Signs: Verdana 4d Verdana 4d Vital Signs: Verdana 4d Verdana 4Bd Last Vital Signs Verdana 4d Elevator Attendant New 4d Elevator Attendant New 4d Temp 98.3 F 09/11/21 13:08 Elevator Attendant New 4d Pulse 89 09/11/21 13:08 Elevator Attendant New 4d Resp 16 09/11/21 13:08 BP 137/87 09/11/21 13:08 Pulse Ox 100 09/11/21 13:08 BMI result Body Mass Index 33.7 Const: General: cooperative, healthy appearing, comfortable and no acute distress Orientation/consciousness: patient oriented x3 Limitations: no limitations HENMT: Head: Yes normal to inspection Ears: hearing grossly normal bilaterally General nose exam: Normal external nose present Face and sinus: Yes normal facial exam Mouth: Normal oral and palatal mucosa present Throat: Yes posterior oropharynx normal Eyes: General: appearance normal, both eyes and all related structures Pupils: Equal, round and reactive pupils present Neck: Neck: Yes normal visual inspection Chest: Chest palpation & inspection: normal inspection of the chest Resp: Effort & Inspection: normal respiratory effort Auscultation: clear to auscultation bilaterally Cardio: Rate: regular rate Rhythm: regular rhythm Peripheral pulses: Peripheral pulses 2+ throughout GI: Inspection: Yes normal to inspection Palpation (GI): Soft to palpation and nontender Auscultation: normal bowel sounds Back/Spine/Pelvis: Thoracic/Lumbar Spine: thoracic and lumbar spine normal to inspection Skin: General skin exam: no rashes or lesions noted Neuro: General: patient oriented x3, no focal motor deficits and normal sensation to monofilament Cranial nerves: Yes Equal, round and reactive pupils present Cognition (Neuro): normal cognition Speech: No Abnormal speech present Gait exam (Neuro): Normal gait present Motor exam (neuro): 5/5 motor strength present throughout Extrem: Other: To the right leg there is swelling, tenderness and ecchymosis extending from the mid tibia down to the foot. There are palpable distal DP and PT pulses There is full range of motion There is no erythema or warmth. Negative Peterson test. Tenderness over the posterior right calf Compartments are soft and compressible Sensation intact distally General: Yes normal to inspection Course Course Course Narrative: 71-year-old male here with persistent swelling and pain to the right lower extremity after a injury that occurred on September 02 will going down the stairs. Patient had an outpatient ultrasound was negative for DVT. He has been compliant with Xarelto with no missed doses. He is here with continued pain and swelling. On exam there is swelling, ecchymosis and pain of the entire right lower extremity. The compartments are soft and compressible. Neurovascular intact distally. There is tenderness over the posterior calf. Concern for gastro tear. Negative Peterson test so less likely Achilles tendon rupture. Will check x-rays due to reports injury. If negative will place patient in Herb wrap, recommend elevation, ice and follow- up with Orthopedics 1515-x-ray show no acute finding. Likely gastro tear. Will discharge home with follow-up with Orthopedics. Reviewed supportive care at home. Patient will use Tylenol p.r.n. for pain as needed. Reviewed worrisome signs and symptoms of when to return to the emergency department. Comfortable discharge home. MDM - Extremity (Nontraumatic) Medical Records Attestation: I reviewed the patient's medical records. Lab Data Attestation: I reviewed the patient's lab results. Imaging Data tibia/fibular/foot x-ray: Attestation: I personally reviewed and interpreted this imaging study as follows: Radiologist's impression: FINDINGS: There is no evidence of acute fracture or dislocation in the right foot and right tibia and fibula. The bones are in normal alignment. Ankle mortise is intact. Knee joint alignment is maintained. Osseous mineralization is normal. No focal erosion is noted in the foot and ankle. No evidence of radiopaque foreign body or soft tissue air. No significant degenerative changes are noted.? XR/XR foot RT 2V IMPRESSION: No evidence of acute fracture or dislocation in the right tibia and fibula and right foot.? Discharge Plan Discharge Clinical Impression: Gastrocnemius muscle tear Patient Disposition: Home, Self-Care Instructions: Muscle Strain (DC), R.I.C.E. Treatment (ED) Additional Instructions: Use the Herb wrap to help with swelling Elevate the extremity Try to limit weight-bearing Follow-up with Orthopedics Prescriptions: No Action metoprolol succinate 25 mg tablet extended release 24 hr 25 mg PO DAILY Qty: 90 4RF Multaq 400 mg tablet 400 mg PO BID Qty: 180 1RF allopurinol 100 mg tablet 50 mg PO DAILY Qty: 45 0RF Xarelto 15 mg tablet 15 mg PO DAILY Qty: 90 2RF sodium chloride 0.65 % aerosol,spray 1 - 2 spray intranasal TID-QID PRN (Reason: congestion) 0RF benzonatate 100 mg capsule 100 mg PO 0RF atorvastatin 20 mg tablet 20 mg PO DAILY 0RF ergocalciferol (vitamin D2) 1,250 mcg (50,000 unit) capsule 1,250 mcg PO QWEEK 0RF lorazepam 0.5 mg tablet 0.5 mg PO BID PRN0RF acetaminophen 500 mg tablet 0 mg PO 0RF doxazosin 2 mg tablet 4 mg PO DAILY 0RF prednisone 10 mg tablet 10 mg PO DAILY PRN0RF Rx Instructions: Take 1 tab PO daily for 3 days for gout attack sennosides [senna] 8.6 mg tablet 17.2 mg PO DAILY 0RF Referrals: Aden Estrella MD [Physician] - 1 week Interventions: ED Discharge Assessment Last Done: 09/11/21 15:14 Discharge Date/Time: 09/11/21 15:14 Print Language: Greek
== END 2021-09-11 15:14 | disposition home or self-care (01) ==
PROVIDERS: Emergency Provider Emergency Medicine; PCP Internal Medicine Geriatric Medicine
DX: S86.111A Strain of other muscle(s) and tendon(s) of posterior muscle group at lower leg level, right leg, initial encounter (principal); X50.1XXA Overexertion from prolonged static or awkward postures, initial encounter; I12.9 Hypertensive chronic kidney disease with stage 1 through stage 4 chronic kidney disease, or unspecified chronic kidney disease; N18.9 Chronic kidney disease, unspecified; I48.0 Paroxysmal atrial fibrillation; Z79.01 Long term (current) use of anticoagulants; Y93.89 Activity, other specified; Y92.9 Unspecified place or not applicable; Y99.9 Unspecified external cause status
CPT/HCPCS: 73590; 73620; 99283

== ENCOUNTER → 2021-09-15 10:32 | Outpatient (BNVA) | payer MEDICARE, SELFPAY | PROVIDERS: PCP Internal Medicine Geriatric Medicine; Visit Provider Nurse Practitioner Family | DX: M1A.39X0 Chronic gout due to renal impairment, multiple sites, without tophus (tophi) (principal) | CPT/HCPCS: 99212 ==

== ENCOUNTER → 2021-10-21 12:49 | Outpatient (BNVA) | payer MEDICARE, SELFPAY | PROVIDERS: PCP Internal Medicine Geriatric Medicine; Visit Provider Nurse Practitioner Family | DX: M1A.39X0 Chronic gout due to renal impairment, multiple sites, without tophus (tophi) (principal) | CPT/HCPCS: 99212 ==

== ENCOUNTER 2021-10-22 09:21 | Outpatient (REF) | payer MEDICARE, SELFPAY ==
[2021-10-22 11:04] LABS: Alanine Aminotransferase 12 U/L (0-40); Albumin Level 3.7 g/dL (3.5-5.0); Alkaline Phosphatase 74 U/L (39-117); Anion Gap 12 (12-20); Aspartate Amino Transferase 15 U/L (5-37); Bilirubin Total 0.7 mg/dL (0.0-1.0); Blood Urea Nitrogen 18 mg/dL (9-16); Calcium 8.8 mg/dL (8.4-10.2); Carbon Dioxide 23 mmol/L (22-29); Chloride 109 mmol/L (96-108); Estimated Glomerular Filt Rate 34; Glucose Random 96 mg/dL (60-115); Potassium 4.3 mmol/L (3.3-5.1); Sodium 140 mmol/L (135-145); Total Protein 6.3 g/dL (6.5-8.0); Uric Acid 7.2 mg/dL (3.4-7.0)
== END 2021-10-22 09:22 | disposition home or self-care (01) ==
LOC: HO.LAB 09:21
PROVIDERS: Absent Provider Internal Medicine Geriatric Medicine; PCP Internal Medicine Geriatric Medicine; Visit Provider Nurse Practitioner Family
DX: M10.9 Gout, unspecified (principal)
CPT/HCPCS: 36415; 80053; 84550

== ENCOUNTER 2021-11-01 08:17 | Outpatient (REF) | payer OTHER, SELFPAY ==
[2021-11-01 08:51] LABS: MANUAL DIFF FLAG NO
[2021-11-01 09:30] LABS: Basophils Percent Auto 0.8 % (0-2); Eosinophils Absolute Auto 0.1 X10*3/uL (0.0-0.4); Eosinophils Percent Auto 2.3 % (0-4); Hematocrit 36.3 % (42.0-52.0); Hemoglobin 11.7 g/dl (14.0-18.0); Imm Gran Abs Auto 0.02 X10*3/uL (0.00-0.03); Imm Gran Pct Auto 0.5 % (0.0-0.4); Lymphocytes Percent Auto 26.9 % (20-40); Mean Corpuscular HGB Conc 32.2 g/dl (31.0-36.0); Mean Corpuscular Hemoglobin 31.2 pg (27.0-33.0); Mean Corpuscular Volume 96.8 fL (80.0-98.0); Mean Platelet Volume 10.8 fL (9.4-12.4); Monocytes Absolute Auto 0.5 X10*3/uL (0.1-1.2); Monocytes Percent Auto 11.6 % (2-11); Neutrophils Absolute Auto 2.2 x10*3/uL (2.0-8.3); Neutrophils Percent Auto 57.9 % (45-73); Platelet Count 169 X10*3/uL (160-400); Red Blood Count 3.75 X10*6/uL (4.60-5.80); Red Cell Distribution Width 12.5 % (11.0-16.0); White Blood Count 3.9 X10*3/uL (4.8-10.8)
[2021-11-01 09:30] LABS: Appearance Urine CLEAR; Color Urine YELLOW; Glucose Urine UA NEG (NEG); Leukocyte Esterase Urine NEG (NEG); Nitrite Urine NEG (NEG); PH 5.5 (5.0-8.0); Specific Gravity - Urine 1.025 (1.005-1.025); Urine Blood NEG (NEG); Urine Ketones NEG (NEG); Urine Protein TRACE MG/DL (NEG-TRACE)
[2021-11-01 09:58] LABS: Creatinine Urine 87.21 mg/dL; Microalbum/Creatinine Ratio Ur 176.5 ug/mg cr; Protein/Creatinine Ratio, Ur 0.29 (<0.2); Total Protein Urine Random 25 mg/dL (<12)
[2021-11-01 10:07] LABS: Anion Gap 11 (12-20); Blood Urea Nitrogen 29 mg/dL (9-16); Calcium 9.2 mg/dL (8.4-10.2); Carbon Dioxide 26 mmol/L (22-29); Chloride 111 mmol/L (96-108); Estimated Glomerular Filt Rate 32; Potassium 5.3 mmol/L (3.3-5.1); Sodium 143 mmol/L (135-145); Uric Acid 8.7 mg/dL (3.4-7.0)
== END 2021-11-01 08:18 | disposition home or self-care (01) ==
LOC: HO.LAB 08:17
PROVIDERS: PCP Internal Medicine Geriatric Medicine; Visit Provider Internal Medicine Nephrology
DX: N18.30 Chronic kidney disease, stage 3 unspecified (principal); N20.0 Calculus of kidney; M1A.9XX0 Chronic gout, unspecified, without tophus (tophi)
CPT/HCPCS: 36415; 80051; 81003; 82043; 82310; 82565; 84156; 84520; 84550; 85025

== ENCOUNTER → 2021-11-15 09:05 | Outpatient (BNVA) | payer OTHER, SELFPAY | PROVIDERS: PCP Internal Medicine Geriatric Medicine; Referring Provider Internal Medicine Geriatric Medicine; Visit Provider Internal Medicine Cardiovascular Disease | DX: I51.7 Cardiomegaly (principal); R94.31 Abnormal electrocardiogram [ECG] [EKG] | CPT/HCPCS: 93005 ==

== ENCOUNTER → 2022-02-08 09:23 | Outpatient (REF) | payer OTHER, SELFPAY ==
--- NOTE | 2022-02-08 09:28 | CA_ITS ---
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 The calculated ejection fraction is 53% by biplane method. - There is mild to moderate mitral valve regurgitation. jet is eccentric and not well visualized in this study. Findings Left Ventricle Normal left ventricular cavity size. There is mildly increased left ventricular wall thickness. The left ventricular systolic function is low normal. The calculated ejection fraction is 53% by biplane method. Diastolic function is normal for age. Right Ventricle Normal right ventricular cavity size and systolic function. Atria Both atria are normal in size. Aortic Valve There is a normal trileaflet aortic valve. There is no aortic valve stenosis. Trace to mild aortic regurgitation. Mitral Valve There is mild anterior mitral leaflet thickening. There is mild to moderate mitral valve regurgitation. The mitral regurgitation jet is directed anteriorly. There is no mitral valve stenosis. Pulmonic Valve The pulmonic valve is likely normal. Tricuspid Valve Normal tricuspid valve structure. There is mild tricuspid valve regurgitation. The pulmonary artery systolic pressure is normal. Great Vessels Top normal ascending aortic size at 4 cm. Venous The inferior vena cava is normal in size and collapses greater than 50% with inspiration. Pericardium/Pleural There is a trivial pericardial effusion. Prior Study Comparison No significant change compared to prior study dated: 01/06/2021. Measurements 2D Linear Measurements IVSd: 1.17 0.6-0.9/0.6-1.0 cm LVIDd: 4.72 3.9-5.3/4.2-5.9 cm LVIDd Index: 2.16 2.4-3.2/2.2-3.1 cm/m2 LVIDs: 3.17 2.0-3.6 cm LVPWd: 1.21 0.7-1.1 cm LA Diam: 3.70 2.7-3.8/3.0-4.0 cm LAIDs Index: 1.69 1.5-2.3 cm/m2 LV Mass: 262.87 67-162/88-224 g LV Mass Index: 120.03 43-95/49-115 g/m2 LVOT Diam: 2.10 3.0+(-)1.3 cm 2D Systolic Function EF 4C: 51.50 >55% EF 2C: 55.40 >55% EF BiP: 53.40 >55% Mitral Valve MV Pk E: 0.66 MV PK A: 0.80 MV Decel Time: 229.00 E/A: 0.80 E'Lateral: 7.18 E'Medial: 6.31 E/E' Med: 10.50 E/E' Lat: 9.20 PHT: 67.00 MVA PHT: 3.28 [place]: 2.88 Aortic Valve AoV Pk Freedom: 1.62 AoV Mn Freedom: 1.07 AoV VTI: 0.29 AoV Pk Grad: 10.00 Aov Mn Grad: 5.00 REDD Cont.VTI: 2.31 LVOT LVOT Pk Freedom: 1.19 LVOT Mn Freedom: 0.76 LVOT VTI: 0.19 LVOT Pk Grad: 6.00 LVOT Mn Grad: 3.00 LVOT Diam: 2.10 LVOT Area: 3.46 Diastolic Function MV Pk E: 0.66 MV Pk A: 0.80 E/A: 0.80 E'Medial: 6.31 E/E' Med: 10.50 E' Laterial: 7.18 E/E' Lat: 9.20 Right Ventricle TAPSE (mm): 24.80 TVS' Freedom: 21.20 Tricuspid Valve TR Pk Freedom: 2.78 TR Pk Grad: 31.00 RA Press: 3.00 RVSP: 34.00 Great Vessels Aorta Sinus of Valsalva: 4.00 2.0-3.[address] [place]: 3.30 1.7-3.4 cm Ao Asc: 4.00 2.1-3.4 cm Updated in Other Vendor System with Status of Final Jaspreet Berrios MD electronically signed on 02/08/2022 11:52:45 AM with status of Final
== END ==
LOC: HO.CARD 09:23
PROVIDERS: PCP Internal Medicine Geriatric Medicine; Visit Provider Internal Medicine Cardiovascular Disease
DX: I34.0 Nonrheumatic mitral (valve) insufficiency (principal)
CPT/HCPCS: 93306

== ENCOUNTER 2022-03-03 08:48 | Outpatient (REF) | payer OTHER, SELFPAY ==
[2022-03-03 10:01] LABS: Hematocrit 36.3 % (42.0-52.0); Hemoglobin 11.9 g/dl (14.0-18.0); Mean Corpuscular HGB Conc 32.8 g/dl (31.0-36.0); Mean Corpuscular Hemoglobin 31.2 pg (27.0-33.0); Mean Corpuscular Volume 95.3 fL (80.0-98.0); Mean Platelet Volume 10.7 fL (9.4-12.4); Platelet Count 153 X10*3/uL (160-400); Red Blood Count 3.81 X10*6/uL (4.60-5.80); Red Cell Distribution Width 13.1 % (11.0-16.0); White Blood Count 3.9 X10*3/uL (4.8-10.8)
[2022-03-03 10:25] LABS: Anion Gap 11 (12-20); Blood Urea Nitrogen 30 mg/dL (9-16); Carbon Dioxide 24 mmol/L (22-29); Chloride 109 mmol/L (96-108); Estimated Glomerular Filt Rate 31; Glucose Random 98 mg/dL (60-115); Potassium 5.1 mmol/L (3.3-5.1); Sodium 139 mmol/L (135-145)
== END 2022-03-03 08:49 | disposition home or self-care (01) ==
LOC: HO.LAB 08:48
PROVIDERS: PCP Internal Medicine Geriatric Medicine; Referring Provider Internal Medicine Geriatric Medicine; Visit Provider Internal Medicine Cardiovascular Disease
DX: I48.0 Paroxysmal atrial fibrillation (principal); I34.0 Nonrheumatic mitral (valve) insufficiency
CPT/HCPCS: 36415; 80048; 85027; 93005; 99212

== ENCOUNTER 2022-04-11 18:36 | Emergency (ER) | payer OTHER, SELFPAY ==
--- NOTE | ~2022-04-11 | US_ITS ---
EXAMINATION: US SCROTUM CLINICAL INFORMATION: Scrotal abscess.. COMPARISON: Scrotal ultrasound 04/20/2020 TECHNIQUE: A sonogram of the scrotum was performed assessing gómez-scale appearance and color Doppler flow. Spectral Doppler analysis of the arterial and venous flow were performed in the testes bilaterally. FINDINGS: RIGHT: Right testicle measures 2.8 x 2.3 x 2.8 cm, volume 9.5 mL. No focal testicular parenchymal lesions are visualized. Spectral Doppler analysis of the arterial and venous flow is normal in the right testis. Normal variant of a right testicular appendix. Persistent 0.7 cm cyst associated with the right scrotal wall epididymal tail unchanged since prior ultrasound study. Right epididymal head is normal in size. There is a right-sided hydrocele. There is no varicocele. Right epididymal Doppler flow is normal. LEFT: Left testicle measures 3 x 2.5 x 2.2 cm, volume 8.9 mL. No focal testicular parenchymal lesions are visualized. Spectral Doppler analysis of the arterial and venous flow is slightly increased relative to the right testicle. in the left testis. Redemonstration of a 0.6 cm cyst at the midpole left testicle unchanged since prior study. Left epididymal head is normal in size. Normal variant of a left epididymal head appendix. There is an anechoic cyst in the head of the left epididymis measuring 1 cm. There is a left-sided hydrocele. There is no varicocele. Left epididymal Doppler flow is normal. US/US scrotum IMPRESSION: 1. No evidence of testicular torsion. 2. No scrotal abscess. 3. Bilateral hydrocele.
[2022-04-11 18:44] VITALS: BP 138/88; PULSE 73; RESP 18; TEMP 36.8; O2SAT 98; BMI 32.3
--- NOTE | 2022-04-11 22:20 | ED.MALEGU ---
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 No fevers, chills. Related Data Home Medications Medication Instructions Recorded Confirmed acetaminophen 500 mg tablet 0 mg PO 08/03/20 03/03/22 atorvastatin 20 mg tablet 20 mg PO DAILY 08/03/20 03/03/22 benzonatate 100 mg capsule 100 mg PO cough 08/03/20 03/03/22 ergocalciferol (vitamin D2) 1,250 1,250 mcg PO QWEEK 08/03/20 03/03/22 mcg (50,000 unit) capsule lorazepam 0.5 mg tablet 0.5 mg PO BID PRN 08/03/20 03/03/22 sodium chloride 0.65 % nasal spray 1 - 2 spray intranasal TID-QID PRN 08/03/20 03/03/22 aerosol congestion doxazosin 2 mg tablet 4 mg PO DAILY 08/23/21 03/03/22 prednisone 10 mg tablet 10 mg PO DAILY PRN 08/23/21 03/03/22 sennosides 8.6 mg tablet (senna) 17.2 mg PO DAILY 08/23/21 03/03/22 Previous Rx's Medication Instructions Recorded rivaroxaban 15 mg tablet (Xarelto) 15 mg PO DAILY #90 tabs 08/30/21 dronedarone 400 mg tablet (Multaq) 400 mg PO BID #180 tabs 10/11/21 metoprolol succinate 25 mg 25 mg PO DAILY #90 tabs 10/12/21 tablet,extended release 24 hr allopurinol 100 mg tablet 100 mg PO DAILY #30 tabs 03/25/22 doxycycline monohydrate 100 mg 100 mg PO BID #14 caps 04/11/22 capsule Allergies Allergy/AdvReac Type Severity Reaction Status Date / Time codeine Allergy Intermediate upset Verified 10/21/21 12:56 stomach morphine [MORPHINE] Allergy Unknown GI DISTRESS Verified 10/21/21 12:56 tramadol [TRAMADOL] Allergy Unknown HEADACHES Verified 10/21/21 12:56 Review of Systems Review of Systems: Yes all other systems are reviewed and are negative Constitutional: Constitutional: Reports no additional constitutional complaints, Denies body ache(s), Denies chills, Denies fever(s), Denies headache(s) and Denies weakness Eyes: Eyes: Reports no additional eye complaints and Denies change in vision ENT: Reports system reviewed and no additional complaints, except as documented, Denies dizziness, Denies headache(s), Denies nasal congestion, Denies nasal discharge and Denies neck pain Cardiovascular: Cardiovascular: Reports no additional cardiovascular complaints, Denies chest pain, Denies leg edema and Denies dyspnea Respiratory: Respiratory: Reports no additional respiratory complaints, Denies cough and Denies dyspnea Gastrointestinal: Gastrointestinal: Reports no additional gastrointestinal complaints, Denies abdominal pain, Denies diarrhea, Denies nausea and Denies vomiting Genitourinary: Genitourinary: Denies urinary incontinence Musculoskeletal: Musculoskeletal: Reports no additional musculoskeletal complaints, Denies back pain, Denies arthralgias, Denies joint swelling, Denies neck pain, Denies numbness and Denies tingling Integumentary/Breasts: Skin/Breast: Reports system reviewed and no additional complaints, except as docu, Reports swelling, Reports erythema and Denies rash Neurologic: Reports system reviewed and no additional complaints, except as documented, Denies Abnormal speech present, Denies dizziness, Denies headache(s), Denies numbness, Denies tingling and Denies weakness PMFSH Past Medical History Attestation statement: The following information was validated with the patient. Source: old records reviewed and nursing notes reviewed Medical History Chronic kidney disease Gout HTN (hypertension) Mitral regurgitation Paroxysmal atrial fibrillation Surgical History Hx of appendectomy Hx of cataract surgery Hx of cholecystectomy Hx of hernia repair Hx of knee surgery Family History Family History Father Colon cancer Mother No problems noted. Social History Social History Alcohol intake: former Patient Tobacco Use Status: Former Tobacco user Cigarettes Per Day: 2 Years Smoked: 1 Advance Directives: No Advance Directives Information Provided: No Physical Exam Vital Signs: Vital Signs: Last Vital Signs Temp 98.3 F 04/11/22 18:44 Pulse 73 04/11/22 18:44 Resp 18 04/11/22 18:44 BP 138/88 04/11/22 18:44 Pulse Ox 98 04/11/22 18:44 O2 Del Method 04/11/22 18:44 BMI result Body Mass Index 32.3 Const: General: cooperative, healthy appearing, comfortable and no acute distress Orientation/consciousness: patient oriented x3 Limitations: no limitations HEENT: Head: Yes normal to inspection Ears: hearing grossly normal bilaterally General nose exam: Normal external nose present Face and sinus: Yes normal facial exam Mouth: Normal oral and palatal mucosa present Throat: Yes posterior oropharynx normal Eyes: General: appearance normal, both eyes and all related structures Pupils: Equal, round and reactive pupils present Neck: Neck: Yes normal visual inspection Chest: Chest palpation & inspection: normal inspection of the chest Resp: Effort & Inspection: normal respiratory effort Auscultation: clear to auscultation bilaterally Cardio: Rate: regular rate Rhythm: regular rhythm Peripheral pulses: Peripheral pulses 2+ throughout GI: Inspection: Yes normal to inspection Palpation (GI): Soft to palpation and nontender Auscultation: normal bowel sounds : Other: at the groin/base of the right testicle there is an area of fluctuance/tenderness/draining approximately [id number] Back/Spine/Pelvis: Thoracic/Lumbar Spine: thoracic and lumbar spine normal to inspection Skin: General skin exam: no rashes or lesions noted Neuro: General: patient oriented x3, no focal motor deficits and normal sensation to monofilament Cranial nerves: Yes Equal, round and reactive pupils present Cognition (Neuro): normal cognition Speech: No Abnormal speech present Gait exam (Neuro): Normal gait present Motor exam (neuro): 5/5 motor strength present throughout Extrem: General: Yes normal to inspection MDM - Male Genitourinary MDM Narrative Medical decision making narrative: 71-year-old male here with superficial abscess to the right testicle/groin area. See procedure note for I&D. Testicular ultrasound shows no deeper abscess process Will start patient on oral antibiotics. Reviewed worrisome signs and symptoms of when to return to the emergency department. Comfortable discharge home Medical Records Attestation: I reviewed the patient's medical records. Lab Data Attestation: I reviewed the patient's lab results. Imaging Data scrotum US: Attestation: I personally reviewed and interpreted this imaging study as follows: Radiologist's impression: [address] [id number] Ultrasound Report Signed Patient: Colby Hardin MR#: [id number] : 1950 Acct:[id number] Age/Sex: 71 / M ADM Date: 04/11/22 Loc: HO.ED Attending Dr: Ordering Physician: Marita Denis NP Date of Service: 04/11/22 Procedure(s): US scrotum Accession Number(s): [id number] cc: Marita Denis NP~ EXAMINATION: US SCROTUM CLINICAL INFORMATION: Scrotal abscess.. COMPARISON: Scrotal ultrasound 04/20/2020 TECHNIQUE: A sonogram of the scrotum was performed assessing gómez-scale appearance and color Doppler flow. Spectral Doppler analysis of the arterial and venous flow were performed in the testes bilaterally. FINDINGS: RIGHT: Right testicle measures 2.8 x 2.3 x 2.8 cm, volume 9.5 mL. No focal testicular parenchymal lesions are visualized. Spectral Doppler analysis of the arterial and venous flow is normal in the right testis. Normal variant of a right testicular appendix. Persistent 0.7 cm cyst associated with the right scrotal wall epididymal tail unchanged since prior ultrasound study. Right epididymal head is normal in size. There is a right-sided hydrocele. There is no varicocele. Right epididymal Doppler flow is normal. LEFT: Left testicle measures 3 x 2.5 x 2.2 cm, volume 8.9 mL. No focal testicular parenchymal lesions are visualized. Spectral Doppler analysis of the arterial and venous flow is slightly increased relative to the right testicle. in the left testis. Redemonstration of a 0.6 cm cyst at the midpole left testicle unchanged since prior study. Left epididymal head is normal in size. Normal variant of a left epididymal head appendix. There is an anechoic cyst in the head of the left epididymis measuring 1 cm. There is a left-sided hydrocele. There is no varicocele. Left epididymal Doppler flow is normal. US/US scrotum IMPRESSION: ? 1. No evidence of testicular torsion. 2. No scrotal abscess. 3. Bilateral hydrocele. Procedures Abscess I/D Site: other (right groin/abscess) Side (if applicable): right Local Anesthetic: lidocaine 1% Amount of anesthesia used (mL): 2 Technique: incised with blade Amount of fluid expressed (mL): 5 Sent for culture/gram staining?: No Irrigation: Yes Packing used?: none Discharge Plan Discharge Clinical Impression: Abscess Patient Disposition: Home, Self-Care Instructions: Abscess (ED) Additional Instructions: change dressing daily Return for fever, increasing redness/swelling Prescriptions: New doxycycline monohydrate 100 mg capsule 100 mg PO BID Qty: 14 0RF No Action Xarelto 15 mg tablet 15 mg PO DAILY Qty: 90 2RF Multaq 400 mg tablet 400 mg PO BID Qty: 180 1RF metoprolol succinate 25 mg tablet extended release 24 hr 25 mg PO DAILY Qty: 90 3RF allopurinol 100 mg tablet 100 mg PO DAILY Qty: 30 1RF sodium chloride 0.65 % aerosol,spray 1 - 2 spray intranasal TID-QID PRN (Reason: congestion) benzonatate 100 mg capsule 100 mg PO atorvastatin 20 mg tablet 20 mg PO DAILY ergocalciferol (vitamin D2) 1,250 mcg (50,000 unit) capsule 1,250 mcg PO QWEEK lorazepam 0.5 mg tablet 0.5 mg PO BID PRN acetaminophen 500 mg tablet 0 mg PO doxazosin 2 mg tablet 4 mg PO DAILY prednisone 10 mg tablet 10 mg PO DAILY PRN Rx Instructions: Take 1 tab PO daily for 3 days for gout attack sennosides [senna] 8.6 mg tablet 17.2 mg PO DAILY Interventions: ED Discharge Assessment Last Done: 04/11/22 22:53 Discharge Date/Time: 04/11/22 22:54 Print Language: British
[2022-04-11] MEDS: Lidocaine HCl 1 % MPF 2 ML VIAL INFILTRATI (22:46)
== END 2022-04-11 22:54 | disposition home or self-care (01) ==
LOC: HO.ED 22:53
PROVIDERS: Emergency Provider Emergency Medicine; PCP Internal Medicine Geriatric Medicine
DX: L02.214 Cutaneous abscess of groin (principal); I12.9 Hypertensive chronic kidney disease with stage 1 through stage 4 chronic kidney disease, or unspecified chronic kidney disease; N18.9 Chronic kidney disease, unspecified; I48.0 Paroxysmal atrial fibrillation; Z79.01 Long term (current) use of anticoagulants; Z79.02 Long term (current) use of antithrombotics/antiplatelets; Z79.899 Other long term (current) drug therapy
CPT/HCPCS: 10060; 76870; 99282; 99284

== ENCOUNTER 2022-04-14 13:21 | Outpatient (REF) | payer OTHER, SELFPAY ==
[2022-04-14 16:57] LABS: Uric Acid 5.9 mg/dL (3.4-7.0)
[2022-04-14 17:01] LABS: Alanine Aminotransferase 26 U/L (0-40); Albumin Level 3.7 g/dL (3.5-5.0); Alkaline Phosphatase 70 U/L (39-117); Anion Gap 17 (12-20); Aspartate Amino Transferase 13 U/L (5-37); Bilirubin Total 0.4 mg/dL (0.0-1.0); Blood Urea Nitrogen 32 mg/dL (9-16); Calcium 8.4 mg/dL (8.4-10.2); Carbon Dioxide 23 mmol/L (22-29); Chloride 105 mmol/L (96-108); Estimated Glomerular Filt Rate 31; Glucose Random 85 mg/dL (60-115); Potassium 4.1 mmol/L (3.3-5.1); Sodium 141 mmol/L (135-145); Total Protein 6.2 g/dL (6.5-8.0)
== END 2022-04-14 13:22 | disposition home or self-care (01) ==
LOC: HO.LAB 13:21
PROVIDERS: PCP Internal Medicine Geriatric Medicine; Visit Provider Nurse Practitioner Family
DX: M1A.39X0 Chronic gout due to renal impairment, multiple sites, without tophus (tophi) (principal)
CPT/HCPCS: 36415; 80053; 84550

== ENCOUNTER 2022-04-19 09:08 | Emergency (ER) | payer OTHER, SELFPAY ==
--- NOTE | ~2022-04-19 | US_ITS ---
EXAMINATION: US VENOUS ULTRASOUND WITH DOPPLER LOWER EXTREMITY, LEFT CLINICAL INFORMATION: Pain and swelling COMPARISON: Previous exam July 2014 TECHNIQUE: Ultrasound of the deep veins is performed from the hip to the calf with compression sonography and color and pulse Doppler assessment. Spectral analysis with color-flow imaging is performed. FINDINGS: There is normal venous compression and respiratory variation and augmented flow. The visualized common femoral vein, superficial femoral vein, profunda femoral vein, popliteal vein, and the trifurcation region shows no evidence of deep venous thrombosis. There is no significant popliteal fossa cyst. . US/US venous duplex LE LT IMPRESSION: No DVT demonstrated in the left lower extremity.
--- NOTE | ~2022-04-19 | XR_ITS ---
EXAMINATION: XR KNEE, RIGHT CLINICAL INFORMATION: Right knee pain and swelling. COMPARISON: None TECHNIQUE: Four views of the right knee. FINDINGS: No significant tricompartmental degenerative joint changes are seen. There is no acute fracture or dislocation. There is no joint effusion. Mild prepatellar soft tissue swelling. XR/XR knee RT 4V IMPRESSION: Mild prepatellar soft tissue swelling without acute underlying osseous abnormality.
[2022-04-19 09:55] VITALS: BP 158/93; PULSE 100; RESP 18; TEMP 36.9; O2SAT 100; BMI 33.7
[2022-04-19 10:14] LABS: MANUAL DIFF FLAG NO
[2022-04-19 10:22] LABS: Basophils Percent Auto 0.2 % (0-2); Eosinophils Percent Auto 0.5 % (0-4); Hematocrit 37.9 % (42.0-52.0); Hemoglobin 12.6 g/dl (14.0-18.0); Imm Gran Abs Auto 0.05 X10*3/uL (0.00-0.03); Imm Gran Pct Auto 0.6 % (0.0-0.4); Lymphocytes Absolute Auto 0.7 X10*3/uL (1.2-4.9); Mean Corpuscular HGB Conc 33.2 g/dl (31.0-36.0); Mean Corpuscular Hemoglobin 31.4 pg (27.0-33.0); Mean Corpuscular Volume 94.5 fL (80.0-98.0); Mean Platelet Volume 10.8 fL (9.4-12.4); Monocytes Absolute Auto 0.6 X10*3/uL (0.1-1.2); Monocytes Percent Auto 7.9 % (2-11); Neutrophils Absolute Auto 6.7 x10*3/uL (2.0-8.3); Neutrophils Percent Auto 81.8 % (45-73); Platelet Count 134 X10*3/uL (160-400); Red Blood Count 4.01 X10*6/uL (4.60-5.80); Red Cell Distribution Width 12.7 % (11.0-16.0); White Blood Count 8.1 X10*3/uL (4.8-10.8)
[2022-04-19 10:28] LABS: INTERNATIONAL NORM RATIO 1.5 (0.9-1.1); Prothrombin Time 17.3 SEC (10.0-13.1)
[2022-04-19 10:33] LABS: Lactic Acid 1.4 mmol/L (0.5-2.0)
[2022-04-19 10:37] LABS: Anion Gap 15 (12-20); Blood Urea Nitrogen 26 mg/dL (9-16); Calcium 8.8 mg/dL (8.4-10.2); Carbon Dioxide 22 mmol/L (22-29); Chloride 107 mmol/L (96-108); Creatinine Clr Calc Pharmacy 42.5; Estimated Glomerular Filt Rate 35; Glucose Random 97 mg/dL (60-115); Potassium 4.2 mmol/L (3.3-5.1); Sodium 140 mmol/L (135-145)
[2022-04-19] MEDS: predniSONE 20 MG TABLET PO (15:04)
--- NOTE | 2022-04-19 15:41 | ED.GENADULT ---
HPI - General Adult General Chief complaint: General Medical Stated complaint: R knee swollen Time Seen by Provider: 04/19/22 09:22 Source: patient and hourly sign language interpreter Mode of arrival: ambulatory Limitations: no limitations History of Present Illness HPI narrative: 71-year-old male came in for evaluation of bilateral lower extremity swelling, started with left leg pain, now it is up right knee pain and swelling, patient reported subjective fever, but no nausea or vomiting no coughing, no headache. More difficult to ambulate secondary to the right knee swelling and pain, patient declined drainage from the right knee as reported in the triage nurse's note, patient declined any history of trauma, no history of STD, no risk for STDs. Patient was recently in the emergency department for right groin abscess that was incised and drained in the emergency department patient was placed on doxycycline. Related Data Home Medications Medication Instructions Recorded Confirmed atorvastatin 20 mg tablet 20 mg PO DAILY 08/03/20 04/19/22 benzonatate 100 mg capsule 100 mg PO cough 08/03/20 04/19/22 ergocalciferol (vitamin D2) 1,250 1,250 mcg PO QWEEK 08/03/20 04/19/22 mcg (50,000 unit) capsule lorazepam 0.5 mg tablet 0.5 mg PO BID PRN 08/03/20 04/19/22 sodium chloride 0.65 % nasal spray 1 - 2 spray intranasal TID-QID PRN 08/03/20 04/19/22 aerosol congestion doxazosin 2 mg tablet 4 mg PO DAILY 08/23/21 04/19/22 prednisone 10 mg tablet 10 mg PO DAILY PRN 08/23/21 04/19/22 sennosides 8.6 mg tablet (senna) 17.2 mg PO DAILY 08/23/21 04/19/22 acetaminophen 500 mg tablet 500 mg PO DAILY 04/19/22 04/19/22 dapagliflozin 10 mg tablet 10 mg PO DAILY 04/19/22 04/19/22 (Farxiga) Previous Rx's Medication Instructions Recorded rivaroxaban 15 mg tablet (Xarelto) 15 mg PO DAILY #90 tabs 08/30/21 metoprolol succinate 25 mg 25 mg PO DAILY #90 tabs 10/12/21 tablet,extended release 24 hr doxycycline monohydrate 100 mg 100 mg PO BID #14 caps 04/11/22 capsule dronedarone 400 mg tablet (Multaq) 400 mg PO BID #180 tabs 04/13/22 allopurinol 100 mg tablet 100 mg PO DAILY #30 tabs 04/18/22 cephalexin 500 mg capsule 500 mg PO BID 7 days #14 caps 04/19/22 prednisone 20 mg tablet 20 mg PO BID #10 tabs 04/19/22 sulfamethoxazole 800 1 tab PO Q12H #14 tabs 04/19/22 mg-trimethoprim 160 mg tablet (Bactrim DS) Allergies Allergy/AdvReac Type Severity Reaction Status Date / Time codeine Allergy Intermediate upset Verified 04/19/22 08:16 stomach morphine [MORPHINE] Allergy Unknown GI DISTRESS Verified 04/19/22 08:16 tramadol [TRAMADOL] Allergy Unknown HEADACHES Verified 04/19/22 08:16 Review of Systems Review of Systems: All other systems are reviewed and are negative Constitutional: Reports as per HPI and Reports no additional constitutional complaints Eyes: Reports as per HPI and Reports no additional eye complaints Reports system reviewed and no additional complaints, except as documented Cardiovascular: Reports as per HPI and Reports no additional cardiovascular complaints Respiratory: Reports as per HPI and Reports no additional respiratory complaints Gastrointestinal: Reports as per HPI and Reports no additional gastrointestinal complaints Genitourinary: Reports no additional female genitourinary complaints Musculoskeletal: Reports no additional musculoskeletal complaints Skin/Breast: Reports system reviewed and no additional complaints, except as docu Psychiatric: Reports no additional psychiatric complaints Endocrine: Reports no additional endocrine complaints Hematologic/Lymphatic: Reports no additional hematologic/lymphatic complaints Allergic/Immunologic: Reports no additional allergic/immunologic complaints Reports system reviewed and no additional complaints, except as documented and Reports Abnormal speech present REPLACED BY [facility] Past Medical History Medical History Chronic kidney disease Gout HTN (hypertension) Mitral regurgitation Paroxysmal atrial fibrillation Surgical History Hx of appendectomy Hx of cataract surgery Hx of cholecystectomy Hx of hernia repair Hx of knee surgery Family History Family History Father Colon cancer Mother No problems noted. Social History Social History Alcohol intake: former Patient Tobacco Use Status: Former Tobacco user Cigarettes Per Day: 2 Years Smoked: 1 Advance Directives: Yes Advance Directives Information Provided: Yes Advance Directives on File: No Physical Exam ED Vital Signs: Vital Signs - 24 hr 04/19/22 09:55 Temperature 98.4 F Pulse Rate 100 Respiratory Rate 18 Blood Pressure 158/93 H Pulse Oximetry 100 Oxygen Delivery Method Room Air BMI result Body Mass Index 33.7 Vital signs have been reviewed as appeared to be correct. Blood pressure normal. Heart rate normal. Respiration rate normal. Temperature normal. Oxygen saturation normal. Appearance: Alert. Oriented X3. No acute distress. Head: Normal external exam. Normocephalic. Atraumatic. No Hernandez signs noted. No raccoon eyes noted Eyes: PERRLA. EOMI. Conjunctiva and sclera normal. Eyelids normal. ENT: TM's Normal. Pharynx normal. Uvula midline. Moist mucous membranes. No trismus noted. No drooling noted. No muffled voice noted. Neck: Normal inspection. Neck supple. FROM. No adenopathy. Thyroid Normal. No meningeal signs. No neck mass noted. CVS: Normal heart rate and rhythm. Heart sound normal. No murmurs noted. Pulses normal throughout. Respiratory: No respiratory distress. Painless inspiration. Breath sounds normal. No wheezes/rales/rhonchi noted. Chest nontender. No accessory muscle usage noted or decreased air movement noted. Abdomen: Soft and nontender. Bowel sounds normal in all 4 quadrants. No distention noted. No organomegaly noted. No visible injury noted. Back: No CVA tenderness. Full range of motion noted. Skin: Skin warm and dry. Normal skin color. Normal skin turgor. No rashes/lesions/lacerations noted. Extremities: Left lower leg +2 edema, right knee a small effusion 5 x 6 cm area of redness and hotness only over the anterior aspect of the knee but not on the side. full range motion of the knee with mild pain. Neuro: Oriented X 3. Cranial nerve exam: II-XII are grossly intact No motor deficit. No sensory deficit. Reflexes normal. Course Course Course Narrative: 71-year-old male with history of gout came in with right knee pain and tenderness, normal white count with no signs of SIRS, patient has no risk for STD, septic arthritis is extremely low on my differential today however superficial cellulitis over the left knee is more likely diagnosis or gout flare which is difficult to differentiate clinically, start the patient on 5 days course of prednisone and start the patient on Keflex and Bactrim for a week, the area was delineated by skin marker and patient was instructed to return in 2 days for further evaluation. Medical Decision Making Lab Data Lab results reviewed: Yes I reviewed the patient's lab results. Result diagrams: 04/19/22 10:08 04/19/22 10:08 Labs: Lab Results 04/19/22 04/19/22 04/19/22 Range/Units 10:08 10:08 10:08 WBC 8.1 (4.8-10.8) X10*3/uL RBC 4.01 L (4.60-5.80) X10*6/uL Hgb 12.6 L (14.0-18.0) g/dl Hct 37.9 L (42.0-52.0) % MCV 94.5 (80.0-98.0) fL MCH 31.4 (27.0-33.0) pg MCHC 33.2 (31.0-36.0) g/dl RDW 12.7 (11.0-16.0) % Plt Count 134 L (160-400) X10*3/uL MPV 10.8 (9.4-12.4) fL Immature Gran % (Auto) 0.6 H (0.0-0.4) % Neut % (Auto) 81.8 H (45-73) % Lymph % (Auto) 9.0 L (20-40) % [place] % (Auto) 7.9 (2-11) % Eos % (Auto) 0.5 (0-4) % Baso % (Auto) 0.2 (0-2) % Lymph # (Auto) 0.7 L (1.2-4.9) X10*3/uL [place] # (Auto) 0.6 (0.1-1.2) X10*3/uL Eos # (Auto) 0.0 (0.0-0.4) X10*3/uL Baso # (Auto) 0.0 (0.0-0.2) X10*3/uL Abs Immat Gran (auto) 0.05 H (0.00-0.03) X10*3/uL Absolute Neuts (auto) 6.7 (2.0-8.3) x10*3/uL Absolute Nucleated RBC 0.000 (0.0-0.012) X10*3/uL Nucleated RBC % (auto) 0.0 (0.0-0.2) /100WBC PT 17.3 H (10.0-13.1) SEC INR 1.5 H (0.9-1.1) Sodium 140 (135-145) mmol/L Potassium 4.2 (3.3-5.1) mmol/L Chloride 107 (96-108) mmol/L Carbon Dioxide 22 (22-29) mmol/L Anion Gap 15 (12-20) BUN 26 H (9-16) mg/dL Creatinine 1.89 H (0.5-1.4) mg/dL Estim Creat Clear Calc 42.5 Estimated GFR 35 Random Glucose 97 (60-115) mg/dL Lactic Acid (0.5-2.0) mmol/L Calcium 8.8 (8.4-10.2) mg/dL 04/19/22 Range/Units 10:08 WBC (4.8-10.8) X10*3/uL RBC (4.60-5.80) X10*6/uL Hgb (14.0-18.0) g/dl Hct (42.0-52.0) % MCV (80.0-98.0) fL MCH (27.0-33.0) pg MCHC (31.0-36.0) g/dl RDW (11.0-16.0) % Plt Count (160-400) X10*3/uL MPV (9.4-12.4) fL Immature Gran % (Auto) (0.0-0.4) % Neut % (Auto) (45-73) % Lymph % (Auto) (20-40) % [place] % (Auto) (2-11) % Eos % (Auto) (0-4) % Baso % (Auto) (0-2) % Lymph # (Auto) (1.2-4.9) X10*3/uL [place] # (Auto) (0.1-1.2) X10*3/uL Eos # (Auto) (0.0-0.4) X10*3/uL Baso # (Auto) (0.0-0.2) X10*3/uL Abs Immat Gran (auto) (0.00-0.03) X10*3/uL Absolute Neuts (auto) (2.0-8.3) x10*3/uL Absolute Nucleated RBC (0.0-0.012) X10*3/uL Nucleated RBC % (auto) (0.0-0.2) /100WBC PT (10.0-13.1) SEC INR (0.9-1.1) Sodium (135-145) mmol/L Potassium (3.3-5.1) mmol/L Chloride (96-108) mmol/L Carbon Dioxide (22-29) mmol/L Anion Gap (12-20) BUN (9-16) mg/dL Creatinine (0.5-1.4) mg/dL Estim Creat Clear Calc Estimated GFR Random Glucose (60-115) mg/dL Lactic Acid 1.4 (0.5-2.0) mmol/L Calcium (8.4-10.2) mg/dL Imaging Data Left lower extremities venous ultrasound: Attestation: I personally reviewed and interpreted this imaging study as follows: Radiologist's impression: No DVT demonstrated on the left lower extremity. Right knee x-ray: Attestation: I personally reviewed and interpreted this imaging study as follows: Radiologist's impression: Mild prepatellar soft tissue swelling without acute underlying osseous abnormality. ? Discharge Plan Discharge Clinical Impression: Gout, Cellulitis of leg, right Patient Disposition: Home, Self-Care Instructions: Cellulitis (ED), Gout (ED) Additional Instructions: Come back and 2 days for wound check, return if any fever, increased swelling in the right knee. Prescriptions: New prednisone 20 mg tablet 20 mg PO BID Qty: 10 0RF cephalexin 500 mg capsule 500 mg PO BID 7 Days Qty: 14 0RF sulfamethoxazole-trimethoprim [Bactrim DS] 800-160 mg tablet 1 tab PO Q12H Qty: 14 0RF No Action Xarelto 15 mg tablet 15 mg PO DAILY Qty: 90 2RF metoprolol succinate 25 mg tablet extended release 24 hr 25 mg PO DAILY Qty: 90 3RF Multaq 400 mg tablet 400 mg PO BID Qty: 180 1RF allopurinol 100 mg tablet 100 mg PO DAILY Qty: 30 1RF doxycycline monohydrate 100 mg capsule 100 mg PO BID Qty: 14 0RF sodium chloride 0.65 % aerosol,spray 1 - 2 spray intranasal TID-QID PRN (Reason: congestion) benzonatate 100 mg capsule 100 mg PO atorvastatin 20 mg tablet 20 mg PO DAILY ergocalciferol (vitamin D2) 1,250 mcg (50,000 unit) capsule 1,250 mcg PO QWEEK lorazepam 0.5 mg tablet 0.5 mg PO BID PRN doxazosin 2 mg tablet 4 mg PO DAILY acetaminophen 500 mg tablet 500 mg PO DAILY prednisone 10 mg tablet 10 mg PO DAILY PRN Rx Instructions: Take 1 tab PO daily for 3 days for gout attack sennosides [senna] 8.6 mg tablet 17.2 mg PO DAILY Farxiga 10 mg tablet 10 mg PO DAILY Referrals: Aden Estrella MD [Physician] - Name,MD Marvel [Primary Care Provider] -
== END 2022-04-19 16:48 | disposition home or self-care (01) ==
PROVIDERS: Emergency Medicine; Emergency Provider Emergency Medicine; PCP Internal Medicine Geriatric Medicine
DX: L03.115 Cellulitis of right lower limb (principal); M10.9 Gout, unspecified; M79.604 Pain in right leg; R60.0 Localized edema; M25.461 Effusion, right knee; I12.9 Hypertensive chronic kidney disease with stage 1 through stage 4 chronic kidney disease, or unspecified chronic kidney disease; N18.9 Chronic kidney disease, unspecified; I48.0 Paroxysmal atrial fibrillation; Z79.01 Long term (current) use of anticoagulants; Z79.02 Long term (current) use of antithrombotics/antiplatelets; Z79.899 Other long term (current) drug therapy
CPT/HCPCS: 36415; 73564; 80048; 83605; 85025; 85610; 87040; 93971; 99212; 99282; 99284

== ENCOUNTER 2022-04-21 10:43 | Observation (INO) | payer OTHER, SELFPAY ==
--- NOTE | ~2022-04-21 | XR_ITS ---
EXAMINATION: XR KNEE, RIGHT CLINICAL INFORMATION: Right knee pain. COMPARISON: None TECHNIQUE: Four views of the right knee. FINDINGS: Bones and soft tissues are normal. No fracture or joint effusion. Alignment is anatomic. Joint spaces are well maintained. No abnormal soft tissue calcification. XR/XR knee RT 4V IMPRESSION: Unremarkable right knee.
[2022-04-21 11:06] VITALS: BP 129/81; PULSE 84; RESP 18; TEMP 36.8; O2SAT 99; BMI 33.7
[2022-04-21 12:49] LABS: MANUAL DIFF FLAG NO
[2022-04-21 12:54] LABS: Basophils Percent Auto 0.1 % (0-2); Imm Gran Abs Auto 0.05 X10*3/uL (0.00-0.03); Imm Gran Pct Auto 0.4 % (0.0-0.4); Lymphocytes Absolute Auto 0.6 X10*3/uL (1.2-4.9); Lymphocytes Percent Auto 5.5 % (20-40); Mean Corpuscular HGB Conc 32.4 g/dl (31.0-36.0); Mean Corpuscular Hemoglobin 31.4 pg (27.0-33.0); Mean Corpuscular Volume 96.9 fL (80.0-98.0); Monocytes Absolute Auto 0.7 X10*3/uL (0.1-1.2); Monocytes Percent Auto 5.9 % (2-11); Neutrophils Absolute Auto 9.9 x10*3/uL (2.0-8.3); Neutrophils Percent Auto 88.1 % (45-73); Platelet Count 154 X10*3/uL (160-400); Red Blood Count 3.82 X10*6/uL (4.60-5.80); Red Cell Distribution Width 12.5 % (11.0-16.0); White Blood Count 11.3 X10*3/uL (4.8-10.8)
[2022-04-21 13:04] LABS: Anion Gap 14 (12-20); Blood Urea Nitrogen 40 mg/dL (9-16); Calcium 8.7 mg/dL (8.4-10.2); Carbon Dioxide 24 mmol/L (22-29); Chloride 108 mmol/L (96-108); Creatinine Clr Calc Pharmacy 36.7; Estimated Glomerular Filt Rate 30; Glucose Random 100 mg/dL (60-115); Potassium 5.2 mmol/L (3.3-5.1); Sodium 141 mmol/L (135-145)
--- NOTE | 2022-04-21 16:05 | ED_ITS ---
HPI - Wound/Laceration General Chief Complaint: Wound/Laceration Stated Complaint: Wound recheck Time Seen by Provider: 04/21/22 13:02 Source: patient Mode of arrival: ambulatory Limitations: no limitations History of Present Illness HPI narrative: This is a 71-year-old male past medical history significant for atrial fibrillation anticoagulated, hypertension, gout, mitral regurg, CKD, recent diagnosis of cellulitis on 04/19/2022 presenting to the emergency department with complaints of worsening right knee pain, swelling, redness, warmth. Patient reports pain with ambulation that is worsening over time despite taking antibiotics and prednisone X1 day. Reports subjective fevers/chills at home. Denies numbness, tingling, chest pain, shortness of breath, headache, dizziness, weakness. Patient is anticoagulated. No history of DVT or PE. Patient denies history of STDs or STIs. Related Data Home Medications Medication Instructions Recorded Confirmed atorvastatin 20 mg tablet 20 mg PO DAILY 08/03/20 04/21/22 lorazepam 0.5 mg tablet 0.5 mg PO BID PRN 08/03/20 04/19/22 sodium chloride 0.65 % nasal spray 1 - 2 spray intranasal TID-QID PRN 08/03/20 04/19/22 aerosol congestion sennosides 8.6 mg tablet (senna) 17.2 mg PO DAILY 08/23/21 04/19/22 acetaminophen 500 mg tablet 500 mg PO DAILY 04/19/22 04/19/22 dapagliflozin 10 mg tablet 10 mg PO DAILY 04/19/22 04/21/22 (Farxiga) cholecalciferol (vitamin D3) 50 1 tab PO DAILY 04/21/22 04/21/22 mcg (2,000 unit) tablet doxazosin 4 mg tablet 1 tab PO DAILY 04/21/22 04/21/22 famotidine 40 mg tablet 1 tab PO BEDTIME 04/21/22 04/21/22 Previous Rx's Medication Instructions Recorded rivaroxaban 15 mg tablet (Xarelto) 15 mg PO DAILY #90 tabs 08/30/21 metoprolol succinate 25 mg 25 mg PO DAILY #90 tabs 10/12/21 tablet,extended release 24 hr doxycycline monohydrate 100 mg 100 mg PO BID #14 caps 04/11/22 capsule dronedarone 400 mg tablet (Multaq) 400 mg PO BID #180 tabs 04/13/22 allopurinol 100 mg tablet 100 mg PO DAILY #30 tabs 04/18/22 cephalexin 500 mg capsule 500 mg PO BID 7 days #14 caps 04/19/22 Allergies Allergy/AdvReac Type Severity Reaction Status Date / Time codeine Allergy Intermediate upset Verified 04/19/22 08:16 stomach morphine [MORPHINE] Allergy Unknown GI DISTRESS Verified 04/19/22 08:16 tramadol [TRAMADOL] Allergy Unknown HEADACHES Verified 04/19/22 08:16 Review of Systems Review of Systems: Constitutional : No Weight loss, + Fever, + Chills, No Fatigue, No Malaise ENT/Mouth : No sore throat, No Rhinorrhea Eyes: No Eye Pain, No Swelling, No Redness Cardiovascular : No Chest Pain, No SOB, No Dyspnea on Exertion, No Orthopnea, No Edema, No Palpitations Respiratory : No Cough, No Sputum, No Wheezing Gastrointestinal : No Nausea, No Vomiting, No Diarrhea, No Constipation, No abdominal Pain, No Hematochezia, No Melena Genitourinary : No Dysuria, No Urinary Frequency, No Hematuria, Musculoskeletal : + joint pain, No Myalgias, + Joint Swelling Skin : No Skin Lesions, No rash, + cellulitis Neuro : No Weakness, No Numbness, No Dizziness, No Headache Psych : No Anxiety/Panic, No Depression All other systems reviewed and are negative Yes all other systems are reviewed and are negative [facility] Past Medical History Attestation statement: The following information was validated with the patient. Source: old records reviewed and nursing notes reviewed Medical History Chronic kidney disease Gout HTN (hypertension) Mitral regurgitation Paroxysmal atrial fibrillation Surgical History Hx of appendectomy Hx of cataract surgery Hx of cholecystectomy Hx of hernia repair Hx of knee surgery Family History Family History Father Colon cancer Mother No problems noted. Social History Social History Alcohol intake: former Patient Tobacco Use Status: Former Tobacco user Cigarettes Per Day: 2 Years Smoked: 1 Use of substances other than those prescribed or required for medical reasons: No Advance Directives: No Advance Directives Information Provided: No Physical Exam Vital Signs: Vital Signs: Last Vital Signs Temp 98.3 F 04/21/22 11:06 Pulse 85 04/21/22 17:10 Resp 20 04/21/22 17:10 BP 141/80 H 04/21/22 17:10 Pulse Ox 97 04/21/22 17:10 O2 Del Method 04/21/22 17:10 BMI result Body Mass Index 33.7 vss Appearance: Alert.? Oriented X3.? No acute distress.? Head: Normocephalic, atraumatic, no step-offs or deformities Eyes: Pupils equal, round and reactive to light.? Neck: Normal inspection.? Neck supple.? CVS: Normal heart rate and rhythm.? Pulses normal.? Respiratory: No respiratory distress.? Breath sounds normal.? Abdomen: Soft and nontender.? Skin: Skin warm and dry.? Normal skin color.? Normal skin turgor.? Extremities: No lower extremity edema.? No calf ttp. 5/5 strength to bilateral upper and lower extremities. Painful range of motion to right knee. Left lower leg +2 edema, right knee w/ moderate effusion w/ overlying errythema and calor. 2+ patellar, DP,PT, AT pulses equal and b/l Back: No midline tenderness, no C-spine tenderness, full range of motion, no C VA tenderness bilaterally Neuro: Oriented X 3.? No motor deficit.? No sensory deficit. CN 2-12 intact Course Reevaluation(s) Reevaluation #1: Physical examination significant for leukocytosis, significantly higher than patient's baseline, normocytic anemia is noted again patient's baseline. Plat elets low however at patient's baseline. Chemistry significant for hyperkalemia, patient will be given 5 will,, BMP will be rechecked afterwards. Patient is noted to have an acute on chronic kidney injury will receive IV fluids. Xray of knee pending. Time: 16:50 Reevaluation #2: X-ray with no acute findings. Normal lactic acid Time: 17:48 Reevaluation #3: Attempted to do a joint aspiration however unable to get joint fluid, patient tolerated procedure well, no complications. Again this is reassuring this like Ali is an inflammatory process rather than a septic joint. Time: 18:11 Additional Reevaluation(s): Patient will be admitted to the hospitalist team for further evaluation and tx for cellulitis. MDM - Wound/Laceration MDM Narrative Medical decision making narrative: 1610 This is a 71-year-old male presenting to the emergency department complaints of right knee pain, swelling, patient was recently diagnosed with cellulitis, discharged home on prednisone and antibiotics (ceflex and bactrim)with little to no relief. Reports worsening symptoms and significant pain with range of motion and ambulation. Upon chart review it appears as though patient was diagnosis cellulitis and gout on 04/18/2022 of the right knee, x-rays were obtained which showed mild pr epatellar soft tissue swelling without acute underlying osseous abnormality. Patient also had a left lower extremity venous ultrasound which was within normal limits, no DVT demonstrated. Last time patient was here he refused joint aspiration per chart review. Physical examination pain w/ rom of right knee with overlying erythema and warmth. Concerning for worsening cellulitis w/ gout or less likely Memo's syndrome, septic joint. Unlikely DVT patient anticoagulated and had a L - DVT study a few days ago. Plan- labs, blood cultures, lactic , xray, will do bedside US Medical Records Attestation: I reviewed the patient's medical records. Lab Data Attestation: I reviewed the patient's lab results. Result diagrams: 04/21/22 12:42 04/21/22 12:42 Labs: Lab Results 04/21/22 04/21/22 04/21/22 Range/Units 12:42 12:42 17:18 WBC 11.3 H (4.8-10.8) X10*3/uL RBC 3.82 L (4.60-5.80) X10*6/uL Hgb 12.0 L (14.0-18.0) g/dl Hct 37.0 L (42.0-52.0) % MCV 96.9 (80.0-98.0) fL MCH 31.4 (27.0-33.0) pg MCHC 32.4 (31.0-36.0) g/dl RDW 12.5 (11.0-16.0) % Plt Count 154 L (160-400) X10*3/uL MPV 11.0 (9.4-12.4) fL Immature Gran % (Auto) 0.4 (0.0-0.4) % Neut % (Auto) 88.1 H (45-73) % Lymph % (Auto) 5.5 L (20-40) % [place] % (Auto) 5.9 (2-11) % Eos % (Auto) 0.0 (0-4) % Baso % (Auto) 0.1 (0-2) % Lymph # (Auto) 0.6 L (1.2-4.9) X10*3/uL [place] # (Auto) 0.7 (0.1-1.2) X10*3/uL Eos # (Auto) 0.0 (0.0-0.4) X10*3/uL Baso # (Auto) 0.0 (0.0-0.2) X10*3/uL Abs Immat Gran (auto) 0.05 H (0.00-0.03) X10*3/uL Absolute Neuts (auto) 9.9 H (2.0-8.3) x10*3/uL Absolute Nucleated RBC 0.000 (0.0-0.012) X10*3/uL Nucleated RBC % (auto) 0.0 (0.0-0.2) /100WBC Sodium 141 (135-145) mmol/L Potassium 5.2 H D (3.3-5.1) mmol/L Chloride 108 (96-108) mmol/L Carbon Dioxide 24 (22-29) mmol/L Anion Gap 14 (12-20) BUN 40 H D (9-16) mg/dL Creatinine 2.19 H (0.5-1.4) mg/dL Estim Creat Clear Calc 36.7 Estimated GFR 30 Random Glucose 100 (60-115) mg/dL Lactic Acid 1.1 (0.5-2.0) mmol/L Calcium 8.7 (8.4-10.2) mg/dL Critical Care Time Critical Care Time Critical Care Time: Yes Total Critical Care Time: 35 Attestation: I attest to this time spent taking care of the patient, obtaining history, ph ysical, reviewing labs, imaging, speaking to my attending Discharge Plan Discharge Clinical Impression: Cellulitis, CAESAR (acute kidney injury), Hyperkalemia Patient Disposition: Admitted As Inpatient
[2022-04-21 17:10] VITALS: BP 141/80; PULSE 85; RESP 20; O2SAT 97
[2022-04-21] MEDS: Sodium Zirconium Cyclosilicate 5 GM POWD.PACK PO (17:25)
[2022-04-21] MEDS: cefTRIAXone sodium 1 GM in 0.9 % Sodium Chloride 50 ML IV (17:25)
[2022-04-21] MEDS: 0.9 % Sodium Chloride 1,000 ML 999 ML IV (17:25)
[2022-04-21 17:42] LABS: Lactic Acid 1.1 mmol/L (0.5-2.0)
[2022-04-21] MEDS: Lidocaine HCl 1 % 20 ML VIAL SUBCUT (18:18)
[2022-04-21 20:03] VITALS: BP 142/88; PULSE 84; RESP 18; O2SAT 98
--- NOTE | 2022-04-21 20:44 | PM.IMHP ---
History of Present Illness Date of Service: 04/21/22 Attending physician on admission: Jorge Luis Zheng Chief Complaint: cellulitis 71 year old male with history of CKD stage 3, chronic gout, htn, anxiety, paroxysmal afib on xarelto, mitral valve regurgitation, and hld presented to the ED today from his rheumatology office for evaluation of cellulitis of the right knee. Patietn reports redness and warmth developed over the anterior right knee 2 days ago prompting him to present to the ED. He was discharged with PO keflex and doxycycline. Redness and swelling was not improving so his ivory carver advised him to present to the ED. Xray of the knee two days ago and today negative for osseous abnormality or effusion. No septic arthritis. Venous duplex 2 days ago negative for DVT. Mild leukocytosis of 11.3. Renal function essentially baseline with mild hyperkalemia 5.2. ED provider attempted joint aspiration without success. IV ceftriaxone, IVF, and lokema given in ED. Hemodynamically stable. Normal lactic acid. No sepsis. Review of Systems Review of Systems: General: No fevers, malaise, unintentional weight loss Cardiovascular: No chest pain, palpitations, or leg edema Respiratory: No shortness of breath, wheezing, cough GI: No abdominal pain, nausea, vomiting, diarrhea, constipation, melena, hematochezia MSK: +redness/swelling right knee Neuro: No headaches, weakness, paresthesias Skin: No rashes or lesions [facility] Medical History Chronic kidney disease Gout HTN (hypertension) Mitral regurgitation Paroxysmal atrial fibrillation Family History Father Colon cancer Mother No problems noted. Surgical History Hx of appendectomy Hx of cataract surgery Hx of cholecystectomy Hx of hernia repair Hx of knee surgery Social History Alcohol intake: former Patient Tobacco Use Status: Former Tobacco user Cigarettes Per Day: 2 Years Smoked: 1 Use of substances other than those prescribed or required for medical reasons: No Advance Directives: No Advance Directives Information Provided: No Meds Allergies Allergy/AdvReac Type Severity Reaction Status Date / Time codeine Allergy Intermediate upset Verified 04/19/22 08:16 stomach morphine [MORPHINE] Allergy Unknown GI DISTRESS Verified 04/19/22 08:16 tramadol [TRAMADOL] Allergy Unknown HEADACHES Verified 04/19/22 08:16 Active Medications: Current Medications Acetaminophen (Acetaminophen 325 Mg Tablet) 650 mg PO Q6H PRN PRN Reason: Pain, Mild (Pain Scale 1-3) Allopurinol (Allopurinol 100 Mg Tablet) 100 mg PO DAILY [facility] Atorvastatin Calcium (Atorvastatin Calcium 20 Mg Tablet) 20 mg PO DAILY [facility] Doxazosin Mesylate (Doxazosin Mesylate 2 Mg Tablet) 4 mg PO DAILY [facility]; Protocol Dronedarone (Dronedarone Hcl 400 Mg Tablet) 400 mg PO BID [facility] Famotidine (Famotidine 20 Mg Tablet) 40 mg PO BEDTIME [facility] Vancomycin HCl (Vancomycin/Ns) 2,000 mg in 520 mls @ 260 mls/hr IV ONCE ONE Stop: 04/21/22 22:02 Metoprolol Succinate (Metoprolol Succinate Er 25 Mg Tab.Er.24h) 25 mg PO DAILY [facility]; Protocol Non-Formulary Medication (Dapagliflozin [Farxiga]) 10 mg PO DAILY [facility] Ondansetron HCl (Ondansetron Hcl 4 Mg/2 Ml Vial) 4 mg IVPUSH Q8H PRN PRN Reason: Nausea and Vomiting Pharmacy Consult (Consult Rx Vancomycin Dosing) 1 each MISCELLANE DAILY PRN PRN Reason: Consult order Pharmacy Consult (Consult Rx Vancomycin Dosing) 1 each MISCELLANE DAILY PRN PRN Reason: Consult order Rivaroxaban (Rivaroxaban 15 Mg Tablet) 15 mg PO DAILY [facility] Sodium Chloride (0.9 % Sodium Chloride Flush 3 Ml Syringe) 3 ml IVFLUSH QSHIFT [facility] Vitamin D (Cholecalciferol (Vitamin D3) 25 Mcg Tablet) 50 mcg PO DAILY [facility] Home Medications Medication Instructions Recorded Confirmed Last Taken Type atorvastatin 20 mg tablet 20 mg PO DAILY 08/03/20 04/21/22 Unknown History lorazepam 0.5 mg tablet 0.5 mg PO BID PRN Anxiety 08/03/20 04/21/22 Unknown History sennosides 8.6 mg tablet (senna) 17.2 mg PO DAILY 08/23/21 04/21/22 Unknown History acetaminophen 500 mg tablet 500 mg PO DAILY PRN Pain 04/19/22 04/21/22 Unknown History dapagliflozin 10 mg tablet 10 mg PO DAILY 04/19/22 04/21/22 Unknown History ([facility]) cholecalciferol (vitamin D3) 50 1 tab PO DAILY 04/21/22 04/21/22 Unknown History mcg (2,000 unit) tablet doxazosin 4 mg tablet 1 tab PO DAILY 04/21/22 04/21/22 Unknown History Physical Exam Vital Signs and Narrative: Vital Signs: Last Vital Signs Temp 98.3 F 04/21/22 11:06 Pulse 84 04/21/22 20:03 Resp 18 04/21/22 20:03 BP 142/88 H 04/21/22 20:03 Pulse Ox 98 04/21/22 20:03 O2 Del Method 04/21/22 20:03 BMI result Body Mass Index 33.7 Constitutional - Awake and Alert, No apparent distress Eyes - PERRLA, EOMI Cardiovascular - S1S2, RRR, No edema Respiratory - Normal lung expansion, Normal respiratory effort, No respiratory distress, CTA bilaterally Gastrointestinal - NT / ND; +BS; No rebound or guarding Extremities - no calf tenderness bilaterally. Mild erythema and localized swelling over the right anterior knee with warmth Skin - Warm/Dry Neurological - Alert & oriented x3, CN II -XII in tact. 5/5 strength BUE and BLE Psychological - Appropriate affect Results Labs CBC and Chem 7: 04/21/22 12:42 04/21/22 12:42 Labs: Laboratory Results - last 24 hr 04/21/22 04/21/22 04/21/22 12:42 12:42 17:18 MCV 96.9 MCH 31.4 MCHC 32.4 RDW 12.5 Plt Count 154 L MPV 11.0 Immature Gran % (Auto) 0.4 Neut % (Auto) 88.1 H Lymph % (Auto) 5.5 L [place] % (Auto) 5.9 Eos % (Auto) 0.0 Baso % (Auto) 0.1 Lymph # (Auto) 0.6 L [place] # (Auto) 0.7 Eos # (Auto) 0.0 Baso # (Auto) 0.0 Abs Immat Gran (auto) 0.05 H Absolute Neuts (auto) 9.9 H Absolute Nucleated RBC 0.000 Nucleated RBC % (auto) 0.0 Anion Gap 14 Estim Creat Clear Calc 36.7 Estimated GFR 30 Random Glucose 100 Lactic Acid 1.1 Calcium 8.7 Imaging Radiologist's Impressions: Impressions Knee X-Ray 04/21/22 16:52 IMPRESSION: Unremarkable right knee. Assessment and Plan (1) Cellulitis: Status: Acute (2) Hyperkalemia: Status: Acute Plan 71 year old male with history of CKD stage 3, chronic gout, htn, anxiety, paroxysmal afib on xarelto, mitral valve regurgitation, and hld to be observed for cellulitis having failed outpatient treatment per ED staff, 1-Acute cellulitis right knee -Mild leukocytosis 11.3. Hemodyanically stable. Lactic acid 1.1. No severe sepsis -Received IV ceftriaxone in ED. Attempted joint aspiration failed in ED, no effusion -IV vancomycin ordered -Blood counts pending -Follow cbc 2-Mild hyperkalemia related to CKD- K 5.2 in ED -Received lokelma in ED -Continue IVF -Recheck BMP am and follow 3-Paroxysmal atrial fibrillation- rate controlled -Continue xarelto for anticoagulation, multaq, and metoprolol 4-HTN- bp slightly elevated -Continue metoprolol -Monitor BPs 5-GERD- reporting heartburn -Continue famotidine -TUMs prn 6-HLD -Continue atorvastatin DVT prophylaxis- on xarelto Full code Quality Stroke Does the patient have a stroke diagnosis?: No VTE Prior VTE?: No VTE Risk Level:: Medical - moderate - high VTE Device Contraindication: Treatment Not Indicated VTE Drug Contraindication: N/A - Med Ordered
--- NOTE | 2022-04-21 21:04 | PHA.MEDREC ---
Pharmacy Consult ? Medication Reconciliation Pharmacy has completed the medication reconciliation. With deaf interpreter, patient reported all medications. Carolyne Weiner, LitoD
[2022-04-21 21:48] LABS: Anion Gap 16 (12-20); Blood Urea Nitrogen 35 mg/dL (9-16); Calcium 8.4 mg/dL (8.4-10.2); Carbon Dioxide 21 mmol/L (22-29); Chloride 110 mmol/L (96-108); Creatinine Clr Calc Pharmacy 40.2; Estimated Glomerular Filt Rate 33; Glucose Random 122 mg/dL (60-115); Potassium 4.9 mmol/L (3.3-5.1); Sodium 142 mmol/L (135-145)
[2022-04-21] MEDS: Dronedarone HCl 400 MG TABLET PO (22:06)
[2022-04-21] MEDS: 0.9 % Sodium Chloride 1,000 ML 100 ML IVCONT (22:06)
--- NOTE | 2022-04-21 22:24 | PHA.PROG ---
Admission Date/Time: April 21, 2022 21:07 Indication: Cellulitis Weight in k.873 kg Adjusted body weight in K.9 kg [place] body weight in K.7 kg Obesity Dosing Indication % IBW: 146% Serum Creatinine - Last 168 Hours 04/21/22 04/21/22 12:42 21:24 Creatinine 2.19 H 2.00 H Estimated CrCl and GFR - Last 168 Hours 04/21/22 04/21/22 12:42 21:24 Estim Creat Clear Calc 36.7 40.2 Estimated GFR 30 33 Vancomycin Loading Dose: 2000 mg Current Vancomycin Dosing Regimen: 750 mg Q24H Date and Time for next Vancomycin Level to be drawn: 04/24 @ 1999 Pharmacist Comments on Vancomycin Plan: Patient is morbidly obese and in CAESAR. Vancomycin needs to be carefully monitored. Patient received a loading dose vancomycin 2000 mg (19 mg/kg) in the ED on 04/21 @ 2200. Maintenance dose vancomcyin 750 mg Q24H is scheduled to start 04/22 @ 2200. Expecetd AUC 480 with a trough of 14.8. If patient's renal function imporved dose will need to be increase. Pharmacy will monitor renal funtion daily. Trough is scheduled to be drawn prior to 4th dose. Carolyne Weiner PharmD Vancomycin dosing will take advantage of [employer] as a clinical decision support tool that uses Bayesian modeling to calculate individual patient's pharmacokinetic parameters and forecast the patient's drug concentration time course with the target goal AUC 24 range of 400 - 600 mg/L/hr.
[2022-04-21 23:13] VITALS: BP 131/76; PULSE 81; RESP 18; O2SAT 98
[2022-04-22] MEDS: Acetaminophen 325 MG TABLET 650 MG PO (05:42)
[2022-04-22] MEDS: 0.9 % Sodium Chloride 1,000 ML 100 ML IVCONT (06:54)
[2022-04-22 07:03] LABS: MANUAL DIFF FLAG NO
[2022-04-22 07:07] LABS: Basophils Percent Auto 0.3 % (0-2); Eosinophils Percent Auto 0.1 % (0-4); Hematocrit 34.6 % (42.0-52.0); Hemoglobin 11.1 g/dl (14.0-18.0); Imm Gran Abs Auto 0.03 X10*3/uL (0.00-0.03); Imm Gran Pct Auto 0.4 % (0.0-0.4); Lymphocytes Absolute Auto 1.5 X10*3/uL (1.2-4.9); Lymphocytes Percent Auto 21.1 % (20-40); Mean Corpuscular HGB Conc 32.1 g/dl (31.0-36.0); Mean Corpuscular Hemoglobin 31.4 pg (27.0-33.0); Mean Platelet Volume 11.1 fL (9.4-12.4); Monocytes Absolute Auto 0.6 X10*3/uL (0.1-1.2); Monocytes Percent Auto 8.5 % (2-11); Neutrophils Absolute Auto 4.8 x10*3/uL (2.0-8.3); Neutrophils Percent Auto 69.6 % (45-73); Platelet Count 147 X10*3/uL (160-400); Red Blood Count 3.53 X10*6/uL (4.60-5.80); Red Cell Distribution Width 12.7 % (11.0-16.0); White Blood Count 6.9 X10*3/uL (4.8-10.8)
[2022-04-22 07:27] LABS: Anion Gap 16 (12-20); Blood Urea Nitrogen 35 mg/dL (9-16); Calcium 8.2 mg/dL (8.4-10.2); Carbon Dioxide 21 mmol/L (22-29); Chloride 111 mmol/L (96-108); Creatinine Clr Calc Pharmacy 41.2; Estimated Glomerular Filt Rate 34; Glucose Random 82 mg/dL (60-115); Potassium 4.6 mmol/L (3.3-5.1); Sodium 143 mmol/L (135-145)
--- NOTE | 2022-04-22 08:30 | HE.PHANOTE ---
Vancomycin Dosing Addendum Patients Scr is down today at 1.95 mg/dL from 2.19 mg/dL. Patient has only recieved a load at this time. Load was appropriate. Continue at 750 mg Q24H. predicted AUC 469 mg/L/hr. Level to be drawn 04/24 @1999.
[2022-04-22] MEDS: Rivaroxaban 15 MG TABLET PO (08:32)
[2022-04-22 08:33] VITALS: BP 131/80; PULSE 83; RESP 16; TEMP 36.7; O2SAT 98
[2022-04-22] MEDS: Doxazosin Mesylate 2 MG TABLET 4 MG PO (08:33)
[2022-04-22] MEDS: Atorvastatin Calcium 20 MG TABLET PO (08:33)
[2022-04-22] MEDS: allopurinoL 100 MG TABLET PO (08:33)
[2022-04-22] MEDS: Metoprolol Succinate ER 25 MG TAB.ER.24H PO (08:33)
[2022-04-22] MEDS: Cholecalciferol (Vitamin D3) 25 MCG TABLET 50 MCG PO (08:33)
--- NOTE | 2022-04-22 08:38 | PC.NURSE ---
PT AWAKE, ALERT AND ORIENTED X 3. SKIN WARM AND DRY. RESP UNLABORED. DENIES N/V. C/O MILD PAIN 10/14. SACHIN WRAP TO RIGHT KNEE INACT. +CMS.
[2022-04-22] MEDS: Dronedarone HCl 400 MG TABLET PO ×2 (11:01→22:09)
[2022-04-22] MEDS: Empagliflozin 10 MG TABLET PO (11:01)
--- NOTE | 2022-04-22 11:42 | MHC.CM.PN ---
ESPERANZA 04/22/22, EMR REVIEWED, PT ADMITTED W/CELLULITIS, CM MET W/PT VIA DIAL MAKER, PT REPORTS HE LIVES W/, REPORTS [facility] ONLY DME AND DENIES HOME SERVICES, PT VERIFIES PFIZER X3, PCP SIVA NAME AND HCP IS MADDY [phone] ADN COPY IS ON FILE FROM PREVIOUS VISIT. ANTIC POSSIBLE D/C LATER TODAY HOME NO SERVICES W/FAMILY FOR TRANSPORT
[2022-04-22 11:48] VITALS: BP 135/79; PULSE 71; RESP 16; TEMP 36.6; O2SAT 99
--- NOTE | 2022-04-22 15:15 | HO.PM.IMPN ---
Subjective Subjective Date of Service: 04/22/22 Interval History: No acute issues overnight Review of Systems Via perianesthesia rn Denies chest pain Denies shortness of breath Denies nausea vomiting diarrhea Denies fever chills Physical Exam Vital Signs: Vital Signs: Last Vital Signs Temp 97.9 F 04/22/22 11:48 Pulse 71 04/22/22 11:48 Resp 16 04/22/22 11:48 BP 135/79 04/22/22 11:48 Pulse Ox 99 04/22/22 11:48 O2 Del Method 04/22/22 11:48 BMI result Body Mass Index 33.7 Const: Other: No acute issue Resp: Other: Clear to auscultation bilaterally no rales rhonchi wheezes Cardio: Other: No S4; positive S1-S2; no S3 murmurs rubs gallops GI: Other: Soft nontender nondistended normoactive bowel sounds Extrem: Other: Mild erythema with warmth right knee Objective Data Active Medications Acetaminophen (Acetaminophen 325 Mg Tablet) 650 mg PO Q6H PRN PRN Reason: Pain, Mild (Pain Scale 1-3) Last Admin: 04/22/22 05:42 Dose: 650 mg Documented By: ABEL Allopurinol (Allopurinol 100 Mg Tablet) 100 mg PO DAILY [facility] Last Admin: 04/22/22 08:33 Dose: 100 mg Documented By: DEE DEE Atorvastatin Calcium (Atorvastatin Calcium 20 Mg Tablet) 20 mg PO DAILY [facility] Last Admin: 04/22/22 08:33 Dose: 20 mg Documented By: DEE DEE Calcium Carbonate (Calcium Carbonate 750 Mg Tab.Chew) 750 mg PO Q6H PRN PRN Reason: Heartburn Doxazosin Mesylate (Doxazosin Mesylate 2 Mg Tablet) 4 mg PO DAILY [facility]; Protocol Last Admin: 04/22/22 08:33 Dose: 4 mg Documented By: DEE DEE Dronedarone (Dronedarone Hcl 400 Mg Tablet) 400 mg PO BID [facility] Last Admin: 04/22/22 11:01 Dose: 400 mg Documented By: CHRISTINA Empagliflozin (Empagliflozin 10 Mg Tablet) 10 mg PO DAILY [facility] Last Admin: 04/22/22 11:01 Dose: 10 mg Documented By: CHRISTINA Sodium Chloride (Ns) 1,000 mls @ 100 mls/hr IVCONT .Q10H [facility] Stop: 04/22/22 16:59 Last Admin: 04/22/22 06:54 Dose: 100 mls/hr Documented By: ABEL Vancomycin HCl 750 mg/ Sodium (Chloride) 265 mls @ 265 mls/hr IV Q24H [facility] Metoprolol Succinate (Metoprolol Succinate Er 25 Mg Tab.Er.24h) 25 mg PO DAILY [facility]; Protocol Last Admin: 04/22/22 08:33 Dose: 25 mg Documented By: DEE DEE Ondansetron HCl (Ondansetron Hcl 4 Mg/2 Ml Vial) 4 mg IVPUSH Q8H PRN PRN Reason: Nausea and Vomiting Pharmacy Consult (Consult Rx Vancomycin Dosing) 1 each MISCELLANE DAILY PRN PRN Reason: Consult order Pharmacy Consult (Consult Rx Vancomycin Dosing) 1 each MISCELLANE DAILY PRN PRN Reason: Consult order Rivaroxaban (Rivaroxaban 15 Mg Tablet) 15 mg PO DAILY [facility] Last Admin: 04/22/22 08:32 Dose: 15 mg Documented By: DEE DEE Sodium Chloride (0.9 % Sodium Chloride Flush 3 Ml Syringe) 3 ml IVFLUSH QSHIFT [facility] Last Admin: 04/22/22 08:41 Dose: Not Given Documented By: DEE DEE Non-Admin Reason: IV Running Vitamin D (Cholecalciferol (Vitamin D3) 25 Mcg Tablet) 50 mcg PO DAILY [facility] Last Admin: 04/22/22 08:33 Dose: 50 mcg Documented By: DEE DEE Labs CBC & Chem 7: 04/22/22 06:12 04/22/22 06:12 Labs: Laboratory Results - last 24 hr 04/21/22 04/21/22 04/22/22 17:18 21:24 06:12 MCV 98.0 MCH 31.4 MCHC 32.1 RDW 12.7 Plt Count 147 L MPV 11.1 Immature Gran % (Auto) 0.4 Neut % (Auto) 69.6 Lymph % (Auto) 21.1 [place] % (Auto) 8.5 Eos % (Auto) 0.1 Baso % (Auto) 0.3 Lymph # (Auto) 1.5 [place] # (Auto) 0.6 Eos # (Auto) 0.0 Baso # (Auto) 0.0 Abs Immat Gran (auto) 0.03 Absolute Neuts (auto) 4.8 Absolute Nucleated RBC 0.000 Nucleated RBC % (auto) 0.0 Anion Gap 16 Estim Creat Clear Calc 40.2 Estimated GFR 33 Random Glucose 122 H Lactic Acid 1.1 Calcium 8.4 04/22/22 06:12 MCV MCH MCHC RDW Plt Count MPV Immature Gran % (Auto) Neut % (Auto) Lymph % (Auto) [place] % (Auto) Eos % (Auto) Baso % (Auto) Lymph # (Auto) [place] # (Auto) Eos # (Auto) Baso # (Auto) Abs Immat Gran (auto) Absolute Neuts (auto) Absolute Nucleated RBC Nucleated RBC % (auto) Anion Gap 16 Estim Creat Clear Calc 41.2 Estimated GFR 34 Random Glucose 82 Lactic Acid Calcium 8.2 L Assessment and Plan (1) Cellulitis: Status: Acute (2) Paroxysmal atrial fibrillation: Status: Acute (3) Chronic kidney disease: Status: Acute (4) HTN (hypertension): Status: Acute Plan 71 year old male with history of CKD stage 3, chronic gout, htn, anxiety, paroxysmal afib on xarelto, mitral valve regurgitation, and hld to be observed for cellulitis having failed outpatient treatment., 1.Acute cellulitis right knee -continue ceftriaxone/vancomycin -await formal cultures 2.Paroxysmal atrial fibrillation - rate control adequate -Continue xarelto for anticoagulation, multaq, and metoprolol 4-HTN -acceptable control -Continue metoprolol .... Adjust as indicated -Monitor BPs 5.CKD3 -creatinine at baseline -follow renals/divalents DVT prophylaxis- on xarelto Full code Requires ongoing hospitalization for IV antibiotics to treat cellulitis as failed outpatient therapies Quality Stroke Does the patient have a stroke diagnosis?: No VTE Prior VTE?: No VTE Risk Level:: Medical - moderate - high VTE Device Contraindication: Treatment Not Indicated VTE Drug Contraindication: N/A - Med Ordered
[2022-04-22 15:41] LABS: COVID-19 Test Negative (Negative)
[2022-04-22 19:49] VITALS: BP 136/80; PULSE 66; RESP 16; TEMP 36.3; O2SAT 97
[2022-04-22 21:39] VITALS: BMI 33.7
[2022-04-22] MEDS: vancomycin HCL 750 MG in 0.9 % Sodium Chloride 250 ML 265 MG IV (22:09)
[2022-04-22] MEDS: 0.9 % Sodium Chloride Flush 3 ML SYRINGE IVFLUSH (22:10)
[2022-04-23] VITALS (7 sets, daily range): BP systolic 122–143; BP diastolic 70–83; PULSE 64–80; RESP 16–19; TEMP 36.2–36.9; O2SAT 96–98; BMI 33.7
[2022-04-23 06:07] LABS: MANUAL DIFF FLAG NO
[2022-04-23 06:11] LABS: Basophils Percent Auto 0.8 % (0-2); Eosinophils Absolute Auto 0.1 X10*3/uL (0.0-0.4); Eosinophils Percent Auto 1.6 % (0-4); Hematocrit 34.8 % (42.0-52.0); Hemoglobin 11.2 g/dl (14.0-18.0); Imm Gran Abs Auto 0.02 X10*3/uL (0.00-0.03); Imm Gran Pct Auto 0.4 % (0.0-0.4); Lymphocytes Absolute Auto 1.7 X10*3/uL (1.2-4.9); Lymphocytes Percent Auto 32.2 % (20-40); Mean Corpuscular HGB Conc 32.2 g/dl (31.0-36.0); Mean Corpuscular Volume 99.4 fL (80.0-98.0); Mean Platelet Volume 10.5 fL (9.4-12.4); Monocytes Absolute Auto 0.4 X10*3/uL (0.1-1.2); Monocytes Percent Auto 7.8 % (2-11); Neutrophils Percent Auto 57.2 % (45-73); Platelet Count 137 X10*3/uL (160-400); Red Cell Distribution Width 12.8 % (11.0-16.0); White Blood Count 5.2 X10*3/uL (4.8-10.8)
[2022-04-23 06:31] LABS: Alanine Aminotransferase 21 U/L (0-40); Albumin Level 3.2 g/dL (3.5-5.0); Alkaline Phosphatase 65 U/L (39-117); Anion Gap 13 (12-20); Aspartate Amino Transferase 16 U/L (5-37); Bilirubin Total 0.4 mg/dL (0.0-1.0); Blood Urea Nitrogen 31 mg/dL (9-16); Calcium 8.5 mg/dL (8.4-10.2); Carbon Dioxide 23 mmol/L (22-29); Chloride 113 mmol/L (96-108); Creatinine Clr Calc Pharmacy 41.4; Estimated Glomerular Filt Rate 34; Glucose Fasting 85 mg/dL (60-99); Potassium 4.9 mmol/L (3.3-5.1); Sodium 144 mmol/L (135-145); Total Protein 5.4 g/dL (6.5-8.0)
--- NOTE | 2022-04-23 07:32 | HE.PHANOTE ---
Vancomycin Dosing Addendum Patients Scr is down today at 1.94 mg/dL from 1.95mg/dL. Continue at 750 mg Q24H. predicted AUC 455 mg/L/hr. Level to be drawn 04/24 @1999.
[2022-04-23] MEDS: Metoprolol Succinate ER 25 MG TAB.ER.24H PO (08:53)
[2022-04-23] MEDS: Doxazosin Mesylate 2 MG TABLET 4 MG PO (08:53)
[2022-04-23] MEDS: Atorvastatin Calcium 20 MG TABLET PO (08:54)
[2022-04-23] MEDS: allopurinoL 100 MG TABLET PO (08:54)
[2022-04-23] MEDS: Dronedarone HCl 400 MG TABLET PO ×2 (08:54→20:56)
[2022-04-23] MEDS: Rivaroxaban 15 MG TABLET PO (08:54)
[2022-04-23] MEDS: Cholecalciferol (Vitamin D3) 25 MCG TABLET 50 MCG PO (08:56)
[2022-04-23] MEDS: 0.9 % Sodium Chloride Flush 3 ML SYRINGE IVFLUSH ×3 (08:56→21:32)
[2022-04-23] MEDS: Empagliflozin 10 MG TABLET PO (08:56)
[2022-04-23] MEDS: methylPREDNISolone Sod Succ 125 MG/2 ML VIAL IVPUSH (10:19)
--- NOTE | 2022-04-23 10:24 | HO.PM.IMPN ---
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 Afebrile overnight Review of Systems Via hospital supervisor Denies chest pain Denies shortness of breath Denies nausea vomiting diarrhea Denies fever chills Physical Exam Vital Signs: Vital Signs: Last Vital Signs Temp 97.8 F 04/23/22 07:41 Pulse 64 04/23/22 07:41 Resp 18 04/23/22 07:41 BP 138/79 04/23/22 07:41 Pulse Ox 98 04/23/22 07:41 O2 Del Method 04/23/22 07:41 BMI result Body Mass Index 33.7 Const: Other: No acute issue Resp: Other: Clear to auscultation bilaterally no rales rhonchi wheezes Cardio: Other: No S4; positive S1-S2; no S3 murmurs rubs gallops GI: Other: Soft nontender nondistended normoactive bowel sounds Extrem: Other: Mild erythema with warmth right knee Objective Data Active Medications Acetaminophen (Acetaminophen 325 Mg Tablet) 650 mg PO Q6H PRN PRN Reason: Pain, Mild (Pain Scale 1-3) Last Admin: 04/22/22 05:42 Dose: 650 mg Documented By: ABEL Allopurinol (Allopurinol 100 Mg Tablet) 100 mg PO DAILY [facility] Last Admin: 04/23/22 08:54 Dose: 100 mg Documented By: FELICIA Atorvastatin Calcium (Atorvastatin Calcium 20 Mg Tablet) 20 mg PO DAILY [facility] Last Admin: 04/23/22 08:54 Dose: 20 mg Documented By: FELICIA Calcium Carbonate (Calcium Carbonate 750 Mg Tab.Chew) 750 mg PO Q6H PRN PRN Reason: Heartburn Doxazosin Mesylate (Doxazosin Mesylate 2 Mg Tablet) 4 mg PO DAILY [facility]; Protocol Last Admin: 04/23/22 08:53 Dose: 4 mg Documented By: FELICIA Dronedarone (Dronedarone Hcl 400 Mg Tablet) 400 mg PO BID [facility] Last Admin: 04/23/22 08:54 Dose: 400 mg Documented By: FELICIA Empagliflozin (Empagliflozin 10 Mg Tablet) 10 mg PO DAILY [facility] Last Admin: 04/23/22 08:56 Dose: 10 mg Documented By: FELICIA Vancomycin HCl 750 mg/ Sodium (Chloride) 265 mls @ 265 mls/hr IV Q24H [facility] Last Infusion: 04/22/22 23:10 Dose: 0 mls/hr Documented By: JORI Metoprolol Succinate (Metoprolol Succinate Er 25 Mg Tab.Er.24h) 25 mg PO DAILY [facility]; Protocol Last Admin: 04/23/22 08:53 Dose: 25 mg Documented By: FELICIA Ondansetron HCl (Ondansetron Hcl 4 Mg/2 Ml Vial) 4 mg IVPUSH Q8H PRN PRN Reason: Nausea and Vomiting Pharmacy Consult (Consult Rx Vancomycin Dosing) 1 each MISCELLANE DAILY PRN PRN Reason: Consult order Pharmacy Consult (Consult Rx Vancomycin Dosing) 1 each MISCELLANE DAILY PRN PRN Reason: Consult order Rivaroxaban (Rivaroxaban 15 Mg Tablet) 15 mg PO DAILY [facility] Last Admin: 04/23/22 08:54 Dose: 15 mg Documented By: FELICIA Sodium Chloride (0.9 % Sodium Chloride Flush 3 Ml Syringe) 3 ml IVFLUSH QSHIFT [facility] Last Admin: 04/23/22 08:56 Dose: 3 ml Documented By: FELICIA Vitamin D (Cholecalciferol (Vitamin D3) 25 Mcg Tablet) 50 mcg PO DAILY [facility] Last Admin: 04/23/22 08:56 Dose: 50 mcg Documented By: FELICIA Labs CBC & Chem 7: 04/23/22 05:53 04/23/22 05:53 Labs: Laboratory Results - last 24 hr 04/22/22 04/23/22 04/23/22 15:19 05:53 05:53 MCV 99.4 H MCH 32.0 MCHC 32.2 RDW 12.8 Plt Count 137 L MPV 10.5 Immature Gran % (Auto) 0.4 Neut % (Auto) 57.2 Lymph % (Auto) 32.2 [place] % (Auto) 7.8 Eos % (Auto) 1.6 Baso % (Auto) 0.8 Lymph # (Auto) 1.7 [place] # (Auto) 0.4 Eos # (Auto) 0.1 Baso # (Auto) 0.0 Abs Immat Gran (auto) 0.02 Absolute Neuts (auto) 3.0 Absolute Nucleated RBC 0.000 Nucleated RBC % (auto) 0.0 Anion Gap 13 Estim Creat Clear Calc 41.4 Estimated GFR 34 Fasting Glucose 85 Calcium 8.5 Total Bilirubin 0.4 AST 16 ALT 21 Alkaline Phosphatase 65 Total Protein 5.4 L Albumin 3.2 L COVID-19 (TRU) Negative COVID-19 Clin Com See Note Microbiology Microbiology Results: Microbiology 04/21/22 17:18 Blood Culture - Preliminary Blood - Venous No growth after 24 hours. 04/21/22 17:21 Blood Culture - Preliminary Blood - Venous No growth after 24 hours. Assessment and Plan (1) Cellulitis: Status: Acute (2) Paroxysmal atrial fibrillation: Status: Acute (3) HTN (hypertension): Status: Acute (4) Chronic kidney disease: Status: Acute Plan 71 year old male with history of CKD stage 3, chronic gout, htn, anxiety, paroxysmal afib on xarelto, mitral valve regurgitation, and hld to be observed for cellulitis having failed outpatient treatment., 1.Acute cellulitis right knee -continue ceftriaxone/vancomycin -await formal culture results... If afebrile times 24 additional hours will sent home on p.o. 2.Paroxysmal atrial fibrillation - rate control adequate -Continue xarelto for anticoagulation, multaq, and metoprolol 3.HTN -acceptable control -Continue metoprolol .... Adjust as indicated -Monitor BPs 4.CKD3 -creatinine at baseline -follow renals/divalents DVT prophylaxis- on xarelto Full code Requires ongoing hospitalization for IV antibiotics to treat cellulitis as failed outpatient therapies Quality Stroke Does the patient have a stroke diagnosis?: No VTE Prior VTE?: No VTE Risk Level:: Medical - moderate - high VTE Device Contraindication: Treatment Not Indicated VTE Drug Contraindication: N/A - Med Ordered
[2022-04-23] MEDS: vancomycin HCL 750 MG in 0.9 % Sodium Chloride 250 ML 265 MG IV (21:32)
[2022-04-24] VITALS: BP 124/77; PULSE 84; RESP 17; TEMP 36.6; O2SAT 93
[2022-04-24 04:00] VITALS: BP 123/81; PULSE 82; RESP 17; TEMP 36.2; O2SAT 95
[2022-04-24 06:21] LABS: Basophils Percent Auto 0.1 % (0-2); Hematocrit 34.7 % (42.0-52.0); Hemoglobin 11.7 g/dl (14.0-18.0); Imm Gran Abs Auto 0.06 X10*3/uL (0.00-0.03); Imm Gran Pct Auto 0.8 % (0.0-0.4); Lymphocytes Absolute Auto 0.5 X10*3/uL (1.2-4.9); MANUAL DIFF FLAG SCAN; Mean Corpuscular HGB Conc 33.7 g/dl (31.0-36.0); Mean Corpuscular Hemoglobin 31.9 pg (27.0-33.0); Mean Corpuscular Volume 94.6 fL (80.0-98.0); Mean Platelet Volume 10.7 fL (9.4-12.4); Monocytes Absolute Auto 0.1 X10*3/uL (0.1-1.2); Monocytes Percent Auto 1.3 % (2-11); Neutrophils Absolute Auto 6.9 x10*3/uL (2.0-8.3); Neutrophils Percent Auto 91.8 % (45-73); Platelet Count 151 X10*3/uL (160-400); Red Blood Count 3.67 X10*6/uL (4.60-5.80); SCAN SMEAR FLAG 1; White Blood Count 7.6 X10*3/uL (4.8-10.8)
[2022-04-24 06:38] LABS: SLIDE REVIEW VERIFIED
[2022-04-24 07:10] LABS: Alanine Aminotransferase 20 U/L (0-40); Albumin Level 3.4 g/dL (3.5-5.0); Alkaline Phosphatase 71 U/L (39-117); Anion Gap 14 (12-20); Aspartate Amino Transferase 12 U/L (5-37); Bilirubin Total 0.5 mg/dL (0.0-1.0); Blood Urea Nitrogen 41 mg/dL (9-16); Calcium 8.7 mg/dL (8.4-10.2); Carbon Dioxide 22 mmol/L (22-29); Chloride 110 mmol/L (96-108); Creatinine Clr Calc Pharmacy 40.1; Estimated Glomerular Filt Rate 33; Glucose Fasting 127 mg/dL (60-99); Potassium 5.3 mmol/L (3.3-5.1); Sodium 141 mmol/L (135-145); Total Protein 5.8 g/dL (6.5-8.0)
[2022-04-24 08:00] VITALS: BP 140/83; PULSE 78; RESP 18; TEMP 36.3
[2022-04-24] MEDS: 0.9 % Sodium Chloride Flush 3 ML SYRINGE IVFLUSH (09:24)
[2022-04-24] MEDS: Rivaroxaban 15 MG TABLET PO (09:24)
[2022-04-24] MEDS: Dronedarone HCl 400 MG TABLET PO (09:24)
[2022-04-24] MEDS: Metoprolol Succinate ER 25 MG TAB.ER.24H PO (09:24)
[2022-04-24] MEDS: Empagliflozin 10 MG TABLET PO (09:24)
[2022-04-24] MEDS: allopurinoL 100 MG TABLET PO (09:24)
[2022-04-24] MEDS: Atorvastatin Calcium 20 MG TABLET PO (09:24)
[2022-04-24] MEDS: Cholecalciferol (Vitamin D3) 25 MCG TABLET 50 MCG PO (09:24)
[2022-04-24] MEDS: Doxazosin Mesylate 2 MG TABLET 4 MG PO (09:24)
[2022-04-24 11:46] VITALS: BP 111/67; PULSE 65; RESP 18; TEMP 36.5; O2SAT 95
--- NOTE | 2022-04-24 11:54 | PM.DS ---
DS: Providers Provider Date of Service: 04/24/22 Date of admission: 04/21/22 21:07 Date of discharge: 04/24/22 Primary care physician: Marvel Bardales MD DS: Diagnosis Discharge Diagnosis (1) Cellulitis: Status: Acute (2) Paroxysmal atrial fibrillation: Status: Acute (3) HTN (hypertension): Status: Acute (4) Chronic kidney disease: Status: Acute DS: Summary Hospital Course Hospital Course: 71 year old male with history of CKD stage 3, chronic gout, htn, anxiety, paroxysmal afib on xarelto, mitral valve regurgitation, and hld presented to the ED today from his rheumatology office for evaluation of cellulitis of the right knee. Serene reports redness and warmth developed over the anterior right knee 2 days ago prompting him to present to the ED. He was discharged with PO keflex and doxycycline. Redness and swelling was not improving so his exercise rider advised him to present to the ED. Xray of the knee two days ago and today negative for osseous abnormality or effusion. No septic arthritis. Venous duplex 2 days ago negative for DVT. Mild leukocytosis of 11.3. Renal function essentially baseline with mild hyperkalemia 5.2. ED provider attempted joint aspiration without success. IV ceftriaxone, IVF, and lokema given in ED. Hemodynamically stable. Normal lactic acid. No sepsis. Hospital course Admitted to floor. Antibiotics switched to vancomycin and over the next 48 hours patient had dramatic improvement in his knee. Also noted that his gout his ankle was flaring up and he felt this was also related to his knee. He was given 1 pulse dose of Solu-Medrol with a remarkable improvement. He will be discharged to home to complete a course of doxycycline and a prednisone taper Time Spent with Patient Time attestation: Total time spent providing and/or coordinating discharge services: Discharge coordination time: Greater than 30 minutes Quality: Safe Use of Opioids Does Pt have an Active Cancer Diagnosis on the Problem List?: No Quality: Stroke Does the patient have a stroke diagnosis?: No Physical Exam Vital Signs: Vital Signs: Last Vital Signs Temp 97.7 F 04/24/22 11:46 Pulse 65 04/24/22 11:46 Resp 18 04/24/22 11:46 BP 111/67 04/24/22 11:46 Pulse Ox 95 04/24/22 11:46 O2 Del Method 04/24/22 11:46 BMI result Body Mass Index 33.7 Const: Other: No acute issue Resp: Other: Clear to auscultation bilaterally no rales rhonchi wheezes Cardio: Other: No S4; positive S1-S2; no S3 murmurs rubs gallops GI: Other: Soft nontender nondistended normoactive bowel sounds Extrem: Other: Mild erythema with warmth right knee DS: Data Data Completed and Pending Labs on day of discharge: Laboratory Results - last 24 hr 04/24/22 04/24/22 06:05 06:05 WBC 7.6 RBC 3.67 L Hgb 11.7 L Hct 34.7 L MCV 94.6 MCH 31.9 MCHC 33.7 RDW 12.0 Plt Count 151 L MPV 10.7 Immature Gran % (Auto) 0.8 H Neut % (Auto) 91.8 H Lymph % (Auto) 6.0 L [place] % (Auto) 1.3 L Eos % (Auto) 0.0 Baso % (Auto) 0.1 Lymph # (Auto) 0.5 L [place] # (Auto) 0.1 Eos # (Auto) 0.0 Baso # (Auto) 0.0 Abs Immat Gran (auto) 0.06 H Absolute Neuts (auto) 6.9 Absolute Nucleated RBC 0.000 Nucleated RBC % (auto) 0.0 Smear Tech's Comments VERIFIED Sodium 141 Potassium 5.3 H Chloride 110 H Carbon Dioxide 22 Anion Gap 14 BUN 41 H Creatinine 2.00 H Estim Creat Clear Calc 40.1 Estimated GFR 33 Fasting Glucose 127 H D Calcium 8.7 Total Bilirubin 0.5 AST 12 ALT 20 Alkaline Phosphatase 71 Total Protein 5.8 L Albumin 3.4 L Preliminary micro results at discharge 04/21/22 17:18 Blood Culture - Preliminary Blood - Venous No growth after 48 hours. 04/21/22 17:21 Blood Culture - Preliminary Blood - Venous No growth after 48 hours. Discharge Plan Discharge Patient Disposition: Home, Self-Care Discharge Diagnosis: Cellulitis Referrals: Name,MD Marvel [Primary Care Provider] - 1 Week Discharge Medications: New doxycycline hyclate 100 mg tablet 100 mg PO BID Qty: 20 0RF prednisone 20 mg tablet See Rx Instructions .Route .COMPLEX Qty: 18 0RF Rx Instructions: 20 mg orally; 3 tabs daily for 3 days, 2 tabs daily for 3 days, 1 tab daily for 3 days Continued Xarelto 15 mg tablet 15 mg PO DAILY Qty: 90 2RF metoprolol succinate 25 mg tablet extended release 24 hr 25 mg PO DAILY Qty: 90 3RF Multaq 400 mg tablet 400 mg PO BID Qty: 180 1RF allopurinol 100 mg tablet 100 mg PO DAILY Qty: 30 1RF doxazosin 4 mg tablet 1 tab PO DAILY cholecalciferol (vitamin D3) 50 mcg (2,000 unit) tablet 1 tab PO DAILY atorvastatin 20 mg tablet 20 mg PO DAILY lorazepam 0.5 mg tablet 0.5 mg PO BID PRN (Reason: Anxiety) acetaminophen 500 mg tablet 500 mg PO DAILY PRN (Reason: Pain) sennosides [senna] 8.6 mg tablet 17.2 mg PO DAILY Farxiga 10 mg tablet 10 mg PO DAILY Discontinued cephalexin 500 mg capsule 500 mg PO BID 7 Days Qty: 14 0RF Discharge Orders: Discharge Order (Routine); Ordered 04/24/22 Ordered By: Donato Conley Diet: Advance to usual diet Activity on Discharge: As tolerated Stand Alone Forms: Patient Portal Discharge page Care Plan Goals: Complete course of doxycycline and prednisone taper Health Concerns: Follow-up with PCP in 2 weeks Plan of Treatment: Resume all pre-hospital meds Assessment: See discharge summary
--- NOTE | 2022-04-24 12:16 | MHC.CM.NN ---
HOME - SELF CARE RN AWARE OF PLAN. FAMILY TO TRANSPORT
== END 2022-04-24 13:28 | disposition home or self-care (01) ==
LOC: HO.ED 16:41 → HO.EDOVER 21:10 → HO.S3 04-22 15:08
PROVIDERS: Physician Assistant; Admitting Provider Physician Assistant; Emergency Provider Student in an Organized Health Care Education/Training Program; PCP Internal Medicine Geriatric Medicine; Visit Provider Hospitalist
DX: L03.115 Cellulitis of right lower limb (principal); M25.561 Pain in right knee; E87.5 Hyperkalemia; D72.829 Elevated white blood cell count, unspecified; Z20.822 Contact with and (suspected) exposure to COVID-19; I12.9 Hypertensive chronic kidney disease with stage 1 through stage 4 chronic kidney disease, or unspecified chronic kidney disease; N18.30 Chronic kidney disease, stage 3 unspecified; N17.9 Acute kidney failure, unspecified; I48.0 Paroxysmal atrial fibrillation; E78.5 Hyperlipidemia, unspecified; M10.9 Gout, unspecified; I34.0 Nonrheumatic mitral (valve) insufficiency; Z79.01 Long term (current) use of anticoagulants; Z79.02 Long term (current) use of antithrombotics/antiplatelets; Z79.899 Other long term (current) drug therapy; Z87.891 Personal history of nicotine dependence
CPT/HCPCS: 20610; 36415; 73564; 80048; 80053; 83605; 85025; 87040; 87635; 96361; 96365; 96366; 96367; 96375; 99218; 99285; J0696; J2930; J3370

== ENCOUNTER 2022-05-11 09:11 | Outpatient (REF) | payer OTHER, SELFPAY ==
[2022-05-11 09:32] LABS: MANUAL DIFF FLAG NO
[2022-05-11 10:19] LABS: Basophils Percent Auto 0.5 % (0-2); Eosinophils Absolute Auto 0.1 X10*3/uL (0.0-0.4); Eosinophils Percent Auto 1.8 % (0-4); Hematocrit 35.8 % (42.0-52.0); Hemoglobin 11.7 g/dl (14.0-18.0); Imm Gran Abs Auto 0.01 X10*3/uL (0.00-0.03); Imm Gran Pct Auto 0.3 % (0.0-0.4); Lymphocytes Absolute Auto 1.1 X10*3/uL (1.2-4.9); Lymphocytes Percent Auto 27.3 % (20-40); Mean Corpuscular HGB Conc 32.7 g/dl (31.0-36.0); Mean Corpuscular Hemoglobin 31.3 pg (27.0-33.0); Mean Corpuscular Volume 95.7 fL (80.0-98.0); Mean Platelet Volume 11.1 fL (9.4-12.4); Monocytes Absolute Auto 0.4 X10*3/uL (0.1-1.2); Monocytes Percent Auto 9.8 % (2-11); Neutrophils Absolute Auto 2.4 x10*3/uL (2.0-8.3); Neutrophils Percent Auto 60.3 % (45-73); Platelet Count 124 X10*3/uL (160-400); Red Blood Count 3.74 X10*6/uL (4.60-5.80); Red Cell Distribution Width 12.6 % (11.0-16.0)
[2022-05-11 10:29] LABS: Appearance Urine Clear; Color Urine Yellow; Glucose Urine UA 500 mg/dL (Negative); Leukocyte Esterase Urine Negative (Negative); Nitrite Urine Negative (Negative); PH 5.5 (5.0-9.0); Specific Gravity - Urine 1.015 (1.005-1.025); Urine Blood Negative (Negative); Urine Ketones Negative (Negative); Urine Protein Negative (Neg-Trace)
[2022-05-11 10:54] LABS: Creatinine Urine 74.83 mg/dL; Microalbum/Creatinine Ratio Ur 96.2 ug/mg cr; Total Protein Urine Random 15 mg/dL (<12)
[2022-05-11 11:13] LABS: Albumin Level 3.7 g/dL (3.5-5.0); Anion Gap 17 (12-20); Blood Urea Nitrogen 36 mg/dL (9-16); Calcium 8.9 mg/dL (8.4-10.2); Carbon Dioxide 20 mmol/L (22-29); Chloride 110 mmol/L (96-108); Estimated Glomerular Filt Rate 29; Magnesium 1.4 mg/dL (1.6-2.6); Phosphorus 4.2 mg/dL (2.7-4.5); Potassium 5.1 mmol/L (3.3-5.1); Sodium 142 mmol/L (135-145)
[2022-05-13 13:22] LABS: Calcium (PTHI) 8.8 mg/dL (8.6-10.3); PTHI 92 pg/mL (16-77)
== END 2022-05-11 09:12 | disposition home or self-care (01) ==
LOC: HO.LAB 09:11
PROVIDERS: PCP Internal Medicine Geriatric Medicine; Visit Provider Internal Medicine Nephrology
DX: N18.32 Chronic kidney disease, stage 3b (principal); N20.0 Calculus of kidney; M1A.9XX0 Chronic gout, unspecified, without tophus (tophi)
CPT/HCPCS: 36415; 80051; 81003; 82040; 82043; 82306; 82310; 82565; 83735; 83970; 84100; 84156; 84520; 85025; 87086

== ENCOUNTER 2022-05-12 07:55 | Outpatient (REF) | payer OTHER, SELFPAY ==
--- NOTE | ~2022-05-12 | XR_ITS ---
EXAMINATION: XR KNEE AP STANDING, BILATERAL XR KNEE, RIGHT CLINICAL INFORMATION: Pain. COMPARISON: Previous x-ray April 2022. TECHNIQUE: AP bilateral standing view of the knees and sunrise view of the right knee was obtained. FINDINGS: RIGHT KNEE: Bone alignment is normal. No fracture or dislocation is seen. There may be faint degenerative meniscal calcification. There may be narrowing at the lateral patellofemoral joint. The joint spaces are otherwise normal. LEFT KNEE: Normal bone alignment. Degenerative meniscal calcification. XR/XR knee standing BI IMPRESSION: Right knee: Question narrowing at the lateral patellofemoral joints. Degenerative meniscal calcification. Left knee: Degenerative meniscal calcification.
--- NOTE | ~2022-05-12 | XR_ITS ---
EXAMINATION: XR KNEE AP STANDING, BILATERAL XR KNEE, RIGHT CLINICAL INFORMATION: Pain. COMPARISON: Previous x-ray April 2022. TECHNIQUE: AP bilateral standing view of the knees and sunrise view of the right knee was obtained. FINDINGS: RIGHT KNEE: Bone alignment is normal. No fracture or dislocation is seen. There may be faint degenerative meniscal calcification. There may be narrowing at the lateral patellofemoral joint. The joint spaces are otherwise normal. LEFT KNEE: Normal bone alignment. Degenerative meniscal calcification. XR/XR knee RT 1V IMPRESSION: Right knee: Question narrowing at the lateral patellofemoral joints. Degenerative meniscal calcification. Left knee: Degenerative meniscal calcification.
== END 2022-05-12 07:56 | disposition home or self-care (01) ==
LOC: HO.HOSX 07:55
PROVIDERS: Visit Provider Physician Assistant
DX: M25.572 Pain in left ankle and joints of left foot (principal); M25.561 Pain in right knee; G89.29 Other chronic pain; M10.9 Gout, unspecified
CPT/HCPCS: 73560; 73565; 99202

== ENCOUNTER → 2022-06-13 14:31 | Outpatient (BNVA) | payer OTHER, SELFPAY | PROVIDERS: PCP Internal Medicine Geriatric Medicine; Referring Provider Internal Medicine Geriatric Medicine; Visit Provider Nurse Practitioner Family | DX: M10.9 Gout, unspecified (principal); M25.572 Pain in left ankle and joints of left foot; G89.29 Other chronic pain; N18.9 Chronic kidney disease, unspecified | CPT/HCPCS: 99212 ==

== ENCOUNTER 2022-07-12 11:48 | Outpatient (REF) | payer OTHER, SELFPAY ==
[2022-07-12 14:28] LABS: Blood Urea Nitrogen 20 mg/dL (9-16); C Reactive Protein 0.14 mg/dL (< or = 0.50); Estimated Glomerular Filt Rate 32; Uric Acid 6.3 mg/dL (3.4-7.0)
[2022-07-12 14:35] LABS: Erythrocyte Sedimentation Rate 17 MM/HR (0-15)
== END 2022-07-12 11:49 | disposition home or self-care (01) ==
LOC: HO.LAB 11:48
PROVIDERS: PCP Internal Medicine Geriatric Medicine; Visit Provider Nurse Practitioner Family
DX: M10.9 Gout, unspecified (principal); M25.50 Pain in unspecified joint
CPT/HCPCS: 36415; 82565; 84520; 84550; 85652; 86140

== ENCOUNTER 2022-09-01 09:45 | Outpatient (REF) | payer OTHER, SELFPAY ==
[2022-09-01 12:48] LABS: Anion Gap 11 (12-20); Blood Urea Nitrogen 23 mg/dL (9-16); Calcium 8.6 mg/dL (8.4-10.2); Carbon Dioxide 26 mmol/L (22-29); Chloride 109 mmol/L (96-108); Estimated Glomerular Filt Rate 28; Glucose Random 87 mg/dL (60-115); Potassium 4.8 mmol/L (3.3-5.1); Sodium 141 mmol/L (135-145)
== END 2022-09-01 09:46 | disposition home or self-care (01) ==
LOC: HO.LAB 09:45
PROVIDERS: PCP Internal Medicine Geriatric Medicine; Referring Provider Internal Medicine Geriatric Medicine; Visit Provider Internal Medicine Cardiovascular Disease
DX: R06.02 Shortness of breath (principal); I48.0 Paroxysmal atrial fibrillation; I34.0 Nonrheumatic mitral (valve) insufficiency
CPT/HCPCS: 36415; 80048; 93005; 99212

== ENCOUNTER 2022-09-08 12:15 | Outpatient (REF) | payer OTHER, SELFPAY ==
[2022-09-08 13:53] LABS: Anion Gap 11 (12-20); Blood Urea Nitrogen 21 mg/dL (9-16); Calcium 9.1 mg/dL (8.4-10.2); Carbon Dioxide 28 mmol/L (22-29); Chloride 108 mmol/L (96-108); Estimated Glomerular Filt Rate 32; Glucose Random 76 mg/dL (60-115); Potassium 4.5 mmol/L (3.3-5.1); Sodium 142 mmol/L (135-145)
[2022-09-08 13:58] LABS: Uric Acid 5.4 mg/dL (3.4-7.0)
== END 2022-09-08 12:16 | disposition home or self-care (01) ==
LOC: HO.LAB 12:15
PROVIDERS: Internal Medicine Cardiovascular Disease; PCP Internal Medicine Geriatric Medicine; Visit Provider Nurse Practitioner Family
DX: N18.9 Chronic kidney disease, unspecified (principal); M10.9 Gout, unspecified
CPT/HCPCS: 36415; 80048; 84550

== ENCOUNTER → 2022-09-12 08:08 | Outpatient (BNVA) | payer OTHER, SELFPAY | PROVIDERS: PCP Internal Medicine Geriatric Medicine; Visit Provider Nurse Practitioner Family | DX: M10.9 Gout, unspecified (principal); N18.9 Chronic kidney disease, unspecified; Z79.899 Other long term (current) drug therapy | CPT/HCPCS: 99212 ==

== ENCOUNTER → 2022-09-13 07:59 | Outpatient (REF) | payer OTHER, SELFPAY ==
--- NOTE | ~2022-09-13 | NM_ITS ---
EXERCISE MYOCARDIAL PERFUSION STUDY INDICATION: Shortness of breath, assess for coronary disease and ischemia TECHNIQUE: The patient was brought in for an exercise perfusion study on 09/13/2022. Patient performed exercise as per [facility] protocol and was injected 35 mCi of sestamibi once target heart rate was achieved. Images were obtained using the SPECT gamma camera interlaced with the gating device. Images were obtained in supine position. Resting perfusion study was performed on 09/15/2022. Patient was administered 35 mCi of sestamibi intravenously at rest. Images were then obtained in supine position. Images were processed with the software and compared side to side in short axis, horizontal long axis and vertical long axis views. Total DLP 97mGy-cm. FINDINGS: Raw images were reviewed. The stress perfusion study showed diminished tracer uptake along the inferior wall. With CT at admission correction, there is significant improvement testing diaphragmatic attenuation artifact. The gated study shows normal LV systolic function with calculated LVEF of 55%. LV cavity is normal in size. The gated study shows normal wall thickening and contraction of segments. Resting study shows diminished tracer uptake along the inferior wall. With CT attenuation correction, there is improvement suggesting diaphragmatic attenuation artifact. Gating at rest reveals normal wall motion with ejection fraction at 61%. The findings are consistent with fixed inferior perfusion defect. No reversible defects.. NM/NM cardiolite stress test IMPRESSION: 1. Myocardial perfusion imaging study shows likely normal myocardial perfusion. Fixed inferior defect suspected to be from diaphragmatic attenuation artifact 2. Gated LVEF is 55% during stress and 61% during rest. 3. Transient ischemic dilatation not present. EKG component of the test reported separately.
--- NOTE | 2022-09-13 08:04 | CA_ITS ---
Acquisition Time: 2022-09-13 08:04:27 Total Exercise Time: 00:05:39 Test Indications: Dyspnea AFIB Medications: SEE H Protocol: MARY Max HR: 146 BPM 98% of Pred: 148 BPM Max BP: 140/060 mmHG Max Work Load: 7.0 METS Exercise stress test with exercise 5 min 39 sec of Mary protocol, with report of fatigue and sob, no chest discomfort, with frequent isolated PACs, atrial cuplets and short runs, some artifact noted and can't exclude occurrence of paroxysmal atrial fibrillation, with normotensive response to exercise, without EKG changes meeting criteria for ischemia. Nuclear images pending. Test reviewed with Dr Funez Referred By: Rangel Funez Overread By: SHAHBAZ ENRIQUEZ
== END ==
LOC: HO.CARD 07:59
PROVIDERS: PCP Internal Medicine Geriatric Medicine; Visit Provider Internal Medicine Cardiovascular Disease
DX: R07.9 Chest pain, unspecified (principal); R06.02 Shortness of breath
CPT/HCPCS: 78452; 93017; A9500; J0280; J2785

== ENCOUNTER → 2022-11-22 09:06 | Outpatient (BNVA) | payer OTHER, SELFPAY | PROVIDERS: PCP Internal Medicine Geriatric Medicine; Referring Provider Internal Medicine Geriatric Medicine; Visit Provider Internal Medicine Cardiovascular Disease | DX: I48.91 Unspecified atrial fibrillation (principal) | CPT/HCPCS: 93005 ==

== ENCOUNTER 2023-02-20 08:09 | Outpatient (REF) | payer OTHER, SELFPAY ==
[2023-02-20 09:46] LABS: Anion Gap 11 (12-20); Blood Urea Nitrogen 23 mg/dL (9-16); Calcium 8.9 mg/dL (8.4-10.2); Carbon Dioxide 25 mmol/L (22-29); Chloride 107 mmol/L (96-108); Estimated Glomerular Filt Rate 27; Glucose Random 88 mg/dL (60-115); Potassium 4.3 mmol/L (3.3-5.1); Sodium 139 mmol/L (135-145); Uric Acid 6.8 mg/dL (3.4-7.0)
== END 2023-02-20 08:10 | disposition home or self-care (01) ==
LOC: HO.LAB 08:09
PROVIDERS: Absent Provider Internal Medicine Rheumatology; PCP Internal Medicine Geriatric Medicine; Visit Provider Nurse Practitioner Family
DX: M10.9 Gout, unspecified (principal); N18.9 Chronic kidney disease, unspecified
CPT/HCPCS: 36415; 80048; 84550; 99212

== ENCOUNTER 2023-02-20 08:41 | Outpatient (AMB) | payer OTHER, SELFPAY ==
[2023-02-20 08:53] VITALS: BP 140/78; PULSE 73; O2SAT 100; BMI 33.2
--- NOTE | 2023-02-20 08:53 | MHC.OFFVIS ---
Intake Vital Signs 02/20/23 08:53 Height 5 ft 9 in Weight 224 lb 10.417 oz BMI 33.2 BP 140/78 H Blood Pressure Location Rt brachial Position Sitting Pulse 73 Pulse Source Pulse Oximeter Pulse Oximetry (%) 100 Oxygen Delivery Method Room Air Intake Visit Reasons: gout Devulcanizer Head Required: Yes Allergies codeine Adverse Reaction (Intermediate, Verified 02/20/23 08:58) upset stomach morphine [MORPHINE] Adverse Reaction (Unknown, Verified 02/20/23 08:58) GI DISTRESS tramadol [TRAMADOL] Adverse Reaction (Unknown, Verified 02/20/23 08:58) HEADACHES Medication List - Last Reconciled 02/20/23 by Terry Siddiqi MD acetaminophen 500 mg PO DAILY PRN allopurinol 200 mg (2 x 100 mg) PO DAILY atorvastatin 20 mg PO DAILY cholecalciferol (vitamin D3) 1 tab PO DAILY dapagliflozin propanediol (Farxiga) 10 mg PO DAILY doxazosin 1 tab PO DAILY dronedarone (Multaq) 400 mg PO BID lorazepam 0.5 mg PO BID PRN magnesium 200 mg PO DAILY metoprolol succinate ER 25 mg PO DAILY omeprazole 40 mg PO DAILY rivaroxaban (Xarelto) 15 mg PO DAILY sennosides (senna) 17.2 mg PO DAILY simethicone (Gas Relief (simethicone)) 80 mg PO DAILY PRN tadalafil 5 mg PO Q3D HPI HPI Comments History of Present Illness Details The patient presents for evaluation of gout. The history and exam are assisted with the use of the iPad translating service. He says he has not had any acute attacks of gout recently although there was a visit to the emergency room with painful swelling of the right knee back in April of last year. However in September, on 200 mg daily allopurinol his uric acid level was at target. He has some CKD with modest renal impairment. [facility] Medical History Chronic kidney disease Gout HTN (hypertension) Mitral regurgitation Paroxysmal atrial fibrillation Surgical History Hx of appendectomy Hx of cataract surgery Hx of cholecystectomy Hx of hernia repair Hx of knee surgery Family History Father Colon cancer Mother No problems noted. Social History Household Members: Spouse Housing: Apartment Do you presently have visiting nurse or other home services: No Unable to assess alcohol history related to: Unknown Alcohol intake: former Patient Tobacco Use Status: Former Tobacco user Cigarettes Per Day: 2 Years Smoked: 1 service: No Current occupational status: retired Review of Systems Const Details: Negative for appetite change, weight change, fever, chills, malaise and fatigue Eyes Details: Negative for vision change, dry eyes,headaches and dizziness Jayant/Lymph Details: Negative for excessive bruising or bleeding. Physical Exam Vital Signs: Last Vital Signs Pulse 73 02/20/23 08:53 BP 140/78 H 02/20/23 08:53 Pulse Ox 100 02/20/23 08:53 Oxygen Delivery Method Room Air 02/20/23 08:53 BMI result Body Mass Index 33.2 APPEARANCE: Patient in no acute distress EYES no redness, pupils equal and reactive to light, eyelids normal EXTREMITIES: No edema, no calf tenderness, normal peripheral pulses. JOINT EXAM: Hands:? LEFT: Normal pain-free range of motion without tenderness, swelling, increased warmth or erythema. Able to make a full fist and has a good forensic engineer strength.? Slight bony enlargement across the DIPs. ? RIGHT: Normal pain-free range of motion without tenderness, swelling, increased warmth or erythema. Able to make a full fist and has a good forensic engineer strength.? Slight bony enlargement across the DIPs. Wrists: Normal pain-free range of motion without tenderness, swelling, increased warmth or erythema. Elbows: Normal pain-free range of motion without tenderness, swelling, increased warmth or erythema. Shoulders:? Full range of motion with some stiffness reported, able to complete full range of motion.? No tenderness to palpation. No weakness, swelling, increased warmth or erythema. Knees: LEFT: Normal range of motion without tenderness, swelling, increased warmth or erythema.? There is no effusion or crepitation ? RIGHT: Normal range of motion without tenderness, swelling, increased warmth or erythema.? There is no effusion or crepitation Ankles: LEFT:? ? Normal pain-free range of motion without tenderness, swelling, increased warmth or erythema. ? RIGHT:? Normal pain-free range of motion without tenderness, swelling, increased warmth or erythema. Feet:? Normal pain-free range of motion with slight bony enlargement at the 1st MTP joints bilaterally. They are not tender. Elsewhere there is no tenderness, swelling, increased warmth or erythema. ? Results Reviewed Results Reviewed: Laboratory Tests 07/12/22 09/08/22 12:09 12:22 Uric Acid 6.3 5.4 Assessment & Plan Assessment & Plan (1) Chronic kidney disease: Code(s): N18.9 - Chronic kidney disease, unspecified (2) Gout: Comment: Uloric and cholchine- stopped due to rectal bleeding Allopurinol - January 2021- present Code(s): M10.9 - Gout, unspecified Plan Gout with presumably good control of hyperuricemia and gout attacks when he was on the 200 mg daily dose. Now he thinks he is on the 100 mg daily so I wonder what the uric acid level is. When he was on the 100 mg daily he did have that painful swelling in the right knee. This was called cellulitis but it was quite painful so I think it likely was a gout attack. We will check the uric acid level today and get back to him with recommendations on the allopurinol dosage. Coding Level of Care Code Est Pt Level 3 (30324) Diagnoses Chronic kidney disease N18.9 Gout M10.9
== END 2023-02-20 09:28 | disposition home or self-care (01) ==
PROVIDERS: PCP Internal Medicine Geriatric Medicine; Visit Provider Internal Medicine Rheumatology
DX: N18.9 Chronic kidney disease, unspecified (principal); M10.9 Gout, unspecified
CPT/HCPCS: 99213

== ENCOUNTER → 2023-02-24 12:58 | Outpatient (REF) | payer OTHER, SELFPAY ==
--- NOTE | 2023-02-24 13:00 | CA_ITS ---
Transthoracic Echocardiogram Patient (Last, First, Middle): Colby Hardin, Gender: Male Date of : 1950 Age: 72 Procedure Date: 02/24/2023 Procedure Type: Transthoracic Echocardiogram Location: OP Height: 175.26 cm Weight: 98.88 kg BSA: 2.14 m2 Heart Rate: 66 bpm BP: 120 / 70 mmHg Inside Sales Lead: FARHANA Referring MD: Rangel Funez MD Symptoms: I34.0 - Nonrheumatic mitral (valve) insufficiency Study Quality: Fair ECG Rhythm: Sinus Conclusions: - Normal left ventricular size, thickness, and systolic function. The visually estimated ejection fraction is between 55-60%. - E/E prime ratio is between 8 and 15 consistent with indeterminate filling pressures. - Normal right ventricular cavity size and systolic function. - There is trace mitral valve regurgitation. - There is mild dilatation of the sinuses of Valsalva measuring 3.90 cm and mild dilatation of the ascending aorta measuring 4.20 cm. Findings Left Ventricle Normal left ventricular size, thickness, and systolic function. The visually estimated ejection fraction is between 55-60%. There is no evidence of regional wall motion abnormalities. Abnormal diastolic function is noted. Spectral Doppler is indicative of a pseudonormal filling pattern. E/E prime ratio is between 8 and 15 consistent with indeterminate filling pressures. Right Ventricle Normal right ventricular cavity size and systolic function. Atria The left atrium is normal in size. The right atrium is normal in size. Aortic Valve Normal aortic valve structure and function. There is no aortic valve stenosis. There is trace (trivial) aortic valve regurgitation. Mitral Valve The mitral valve appears normal. There is trace mitral valve regurgitation. There is no mitral valve stenosis. Pulmonic Valve Normal pulmonic valve structure and function. There is no pulmonic valve regurgitation. Tricuspid Valve Normal tricuspid valve structure and function. There is no tricuspid valve regurgitation. Normal right atrial pressure. There is no evidence of pulmonary hypertension. Great Vessels There is mild dilatation of the sinuses of Valsalva measuring 3.90 cm and mild dilatation of the ascending aorta measuring 4.20 cm. Venous The inferior vena cava is normal in size and collapses greater than 50% with inspiration. Pericardium/Pleural There is no evidence of pericardial effusion. Prior Study Comparison Changes noted compared to prior study dated: 02/08/2022. Trace MR present Measurements 2D Linear Measurements IVSd: 0.86 0.6-0.9/0.6-1.0 cm LVIDd: 5.22 3.9-5.3/4.2-5.9 cm LVIDd Index: 2.44 2.4-3.2/2.2-3.1 cm/m2 LVIDs: 3.92 2.0-3.6 cm LVPWd: 1.09 0.7-1.1 cm LA Diam: 3.80 2.7-3.8/3.0-4.0 cm LAIDs Index: 1.78 1.5-2.3 cm/m2 LV Mass: 235.10 67-162/88-224 g LV Mass Index: 109.86 43-95/49-115 g/m2 LVOT Diam: 2.20 3.0+(-)1.3 cm 2D Systolic Function EF 4C: 48.90 >55% EF 2C: 54.40 >55% EF BiP: 53.60 >55% Mitral Valve MV Pk E: 0.83 MV PK A: 0.86 MV Decel Time: 174.00 E/A: 1.00 E'Lateral: 5.55 E'Medial: 7.83 E/E' Med: 10.50 E/E' Lat: 14.90 PHT: 51.00 MVA PHT: 4.31 Decel [place]: 4.75 Aortic Valve AoV Pk Freedom: 1.37 AoV Mn Freedom: 0.93 AoV VTI: 0.27 AoV Pk Grad: 8.00 Aov Mn Grad: 4.00 REDD Cont.VTI: 2.70 LVOT LVOT Pk Freedom: 0.98 LVOT Mn Freedom: 0.70 LVOT VTI: 0.20 LVOT Pk Grad: 4.00 LVOT Mn Grad: 2.00 LVOT Diam: 2.20 LVOT Area: 3.80 Diastolic Function MV Pk E: 0.83 MV Pk A: 0.86 E/A: 1.00 E'Medial: 7.83 E/E' Med: 10.50 E' Laterial: 5.55 E/E' Lat: 14.90 Right Ventricle TAPSE (mm): 25.20 TVS' Freedom: 16.50 Tricuspid Valve TR Pk Freedom: 1.99 TR Pk Grad: 16.00 RA Press: 3.00 RVSP: 19.00 Great Vessels Aorta Sinus of Valsalva: 3.90 2.0-3.5 cm Ao Asc: 4.20 2.1-3.4 cm Pulmonary Valve PV Pk Freedom: 1.33 Peak PV Grad: 7.00 Updated in Other Vendor System with Status of Final Mina Anderson MD electronically signed on 02/26/2023 9:52:57 PM with status of Final
== END ==
LOC: HO.CARD 12:58
PROVIDERS: PCP Internal Medicine Geriatric Medicine; Visit Provider Internal Medicine Cardiovascular Disease
DX: I34.0 Nonrheumatic mitral (valve) insufficiency (principal)
CPT/HCPCS: 93306

== ENCOUNTER → 2023-02-24 13:00 | Outpatient (BNV) | payer OTHER, SELFPAY | PROVIDERS: PCP Internal Medicine Geriatric Medicine; Visit Provider Internal Medicine Cardiovascular Disease | DX: I34.0 Nonrheumatic mitral (valve) insufficiency (principal) | CPT/HCPCS: 93306 ==

== ENCOUNTER 2023-03-02 15:03 | Outpatient (AMB) | payer OTHER, SELFPAY ==
[2023-03-02 15:19] VITALS: BP 110/64; PULSE 62; BMI 33.2
--- NOTE | 2023-03-02 15:19 | MHC.OFFVIS ---
Intake Vital Signs 03/02/23 15:19 Height 5 ft 9 in Weight 224 lb 13.944 oz BMI 33.2 BP 110/64 Blood Pressure Location Lt brachial Position Sitting Pulse 62 Intake Visit Reasons: 6 mth w/ ekg s/p echo Intake Note: 6 month follow-up after echo with ekg feeling good Plastic Surgery Technician Required: Yes Plastic Surgery Technician Name: Susana navarro Allergies codeine Adverse Reaction (Intermediate, Verified 02/20/23 08:58) upset stomach morphine [MORPHINE] Adverse Reaction (Unknown, Verified 02/20/23 08:58) GI DISTRESS tramadol [TRAMADOL] Adverse Reaction (Unknown, Verified 02/20/23 08:58) HEADACHES Medication List - Last Reconciled 03/02/23 by Rangel Funez MD acetaminophen 500 mg PO DAILY PRN allopurinol 200 mg (2 x 100 mg) PO DAILY atorvastatin 20 mg PO DAILY cholecalciferol (vitamin D3) 1 tab PO DAILY dapagliflozin propanediol (Farxiga) 10 mg PO DAILY doxazosin 1 tab PO DAILY dronedarone (Multaq) 400 mg PO BID lorazepam 0.5 mg PO BID PRN magnesium 200 mg PO DAILY metoprolol succinate ER 25 mg PO DAILY omeprazole 40 mg PO DAILY rivaroxaban (Xarelto) 15 mg PO DAILY sennosides (senna) 17.2 mg PO DAILY simethicone (Gas Relief (simethicone)) 80 mg PO DAILY PRN tadalafil 5 mg PO Q3D HPI HPI Comments History of Present Illness Details Colby comes for follow-up. History obtained with help of liquid floor and wall applier. Recent echocardiogram shows mildly enlarged thoracic aorta at 3.9 cm otherwise normal LV systolic function. He has exertional shortness of breath and sometimes as skipped heartbeats, which she has had for long time. Denies any orthopnea, PND. No exertional chest pain. No lightheadedness, syncope. Takes all his medications. No bleeding issues or neurologic events. No prolonged palpitations. [facility] Medical History Chronic kidney disease Gout HTN (hypertension) Mitral regurgitation Paroxysmal atrial fibrillation Surgical History Hx of appendectomy Hx of cataract surgery Hx of cholecystectomy Hx of hernia repair Hx of knee surgery Family History Father Colon cancer Mother No problems noted. Social History Household Members: Spouse Housing: Apartment Do you presently have visiting nurse or other home services: No Unable to assess alcohol history related to: Unknown Alcohol intake: former Patient Tobacco Use Status: Former Tobacco user Cigarettes Per Day: 2 Years Smoked: 1 service: No Current occupational status: retired Review of Systems Const Denies chills, Denies fatigue, Denies fever(s), Denies frequent falls, Denies weakness, Denies weight gain and Denies weight loss ENT Denies dizziness Card Denies chest pain, Denies leg edema, Denies lightheadedness, Denies palpitations, Denies dyspnea, Denies dyspnea on exertion, Denies orthopnea and Denies other (loss of consciousness) Resp Denies cough, Denies dyspnea and Denies dyspnea on exertion GI Denies hematochezia and Denies change in stool character Musc Denies abnormal gait, Denies muscle weakness, Denies numbness, Denies radiating pain into limb and Denies tingling Neuro Denies abnormal gait, Denies dizziness, Denies frequent falls, Denies numbness, Denies tingling and Denies weakness Endo Denies fatigue and Denies palpitations Physical Exam Vital Signs: Last Vital Signs Pulse 62 03/02/23 15:19 BP 110/64 03/02/23 15:19 BMI result Body Mass Index 33.2 Const General: cooperative, comfortable, no acute distress, alert and awake Nutritional Appearance: obese Orientation/consciousness: patient oriented x3 Limitations: no limitations Neck Neck: Yes trachea midline, Yes supple and Yes no JVD Resp Effort & Inspection: normal respiratory effort Auscultation: clear to auscultation bilaterally Cardio Jugular venous distension: no JVD Palpation: normal PMI Rate: regular rate Rhythm: regular rhythm Heart sounds: S1 normal heart sound present and S2 normal heart sound present GI Auscultation: normal bowel sounds Skin General skin exam: no rashes or lesions noted Neuro General: patient oriented x3 and no focal motor deficits Extrem General: Yes no clubbing, cyanosis or edema Psych Appearance: grossly normal Office Procedures EKG Details: EKG shows normal sinus rhythm with LVH with QRS widening otherwise [place] [id number], Complete Assessment & Plan Assessment & Plan (1) Paroxysmal atrial fibrillation: Code(s): I48.0 - Paroxysmal atrial fibrillation Plan: Paroxysmal atrial fibrillation which has predominant remained controlled with Multaq therapy has done really well with rhythm control approach will continue pursue rhythm control approach with EKGs every 3 months. Follow up in the clinic 1 year's time. Continue full oral anticoagulation, currently on renally adjusted dose of Xarelto. Continue monitor renal function every 3 months. Continue aggressive control blood pressure. Avoidance of stimulants was discussed. Continue participate in aggressive weight loss program and recommend to participate in regular physical activity. (2) Enlarged thoracic aorta: Code(s): I77.89 - Other specified disorders of arteries and arterioles Plan: Mildly enlarged thoracic aorta 3.9 cm with it this was discussed with him. Will continue monitor annually for by echocardiogram. No interventions required at this point time. Continue aggressive control blood pressure which is currently well optimized importance of good blood pressure control was discussed. Advised to avoid sudden strenuous isometric exercise. Follow up in the clinic every 3 months for EKG in 1 year with me. Orders: Orders Basic Metabolic Panel Today I48.0 - Paroxysmal atrial fibrillation Complete Blood Count no Diff Today I48.0 - Paroxysmal atrial fibrillation Coding Level of Care Code Est Pt Level 4 (70334) Diagnoses Paroxysmal atrial fibrillation I48.0 Enlarged thoracic aorta I77.89 CPT Codes EKG - CPT: 42336-[id number], Complete ([id number])
== END 2023-03-02 15:43 | disposition home or self-care (01) ==
PROVIDERS: Visit Provider Internal Medicine Cardiovascular Disease
DX: I48.0 Paroxysmal atrial fibrillation (principal); I77.89 Other specified disorders of arteries and arterioles
CPT/HCPCS: 93010; 99214

== ENCOUNTER → 2023-03-02 15:03 | Outpatient (BNVA) | payer OTHER, SELFPAY | PROVIDERS: Visit Provider Internal Medicine Cardiovascular Disease | DX: I48.0 Paroxysmal atrial fibrillation (principal); I77.89 Other specified disorders of arteries and arterioles | CPT/HCPCS: 93005; 99212 ==

== ENCOUNTER 2023-04-21 08:57 | Outpatient (REF) | payer OTHER, SELFPAY ==
[2023-04-21 10:00] LABS: Hemoglobin 12.7 g/dl (14.0-18.0); Mean Corpuscular HGB Conc 31.8 g/dl (31.0-36.0); Mean Corpuscular Hemoglobin 30.9 pg (27.0-33.0); Mean Corpuscular Volume 97.3 fL (80.0-98.0); Mean Platelet Volume 11.2 fL (9.4-12.4); Platelet Count 152 X10*3/uL (160-400); Red Blood Count 4.11 X10*6/uL (4.60-5.80); Red Cell Distribution Width 12.5 % (11.0-16.0); White Blood Count 3.9 X10*3/uL (4.8-10.8)
[2023-04-21 11:24] LABS: Anion Gap 11 (12-20); Blood Urea Nitrogen 30 mg/dL (9-16); Calcium 9.1 mg/dL (8.4-10.2); Carbon Dioxide 23 mmol/L (22-29); Chloride 112 mmol/L (96-108); Estimated Glomerular Filt Rate 28; Glucose Random 93 mg/dL (60-115); Potassium 5.4 mmol/L (3.3-5.1); Sodium 141 mmol/L (135-145)
== END 2023-04-21 08:58 | disposition home or self-care (01) ==
LOC: HO.LAB 08:57
PROVIDERS: PCP Internal Medicine Geriatric Medicine; Visit Provider Internal Medicine Cardiovascular Disease
DX: I48.0 Paroxysmal atrial fibrillation (principal)
CPT/HCPCS: 36415; 80048; 85027

== ENCOUNTER 2023-04-24 09:34 | Outpatient (REF) | payer OTHER, SELFPAY ==
[2023-04-24 11:19] LABS: MANUAL DIFF FLAG NO
[2023-04-24 11:30] LABS: Basophils Percent Auto 0.7 % (0-2); Eosinophils Absolute Auto 0.1 X10*3/uL (0.0-0.4); Eosinophils Percent Auto 1.2 % (0-4); Hematocrit 39.1 % (42.0-52.0); Hemoglobin 12.8 g/dl (14.0-18.0); Imm Gran Abs Auto 0.02 X10*3/uL (0.00-0.03); Imm Gran Pct Auto 0.5 % (0.0-0.4); Lymphocytes Percent Auto 22.4 % (20-40); Mean Corpuscular HGB Conc 32.7 g/dl (31.0-36.0); Mean Corpuscular Hemoglobin 31.7 pg (27.0-33.0); Mean Corpuscular Volume 96.8 fL (80.0-98.0); Mean Platelet Volume 11.4 fL (9.4-12.4); Monocytes Absolute Auto 0.4 X10*3/uL (0.1-1.2); Monocytes Percent Auto 8.3 % (2-11); Neutrophils Absolute Auto 2.9 x10*3/uL (2.0-8.3); Neutrophils Percent Auto 66.9 % (45-73); Platelet Count 148 X10*3/uL (160-400); Red Blood Count 4.04 X10*6/uL (4.60-5.80); Red Cell Distribution Width 12.3 % (11.0-16.0); White Blood Count 4.3 X10*3/uL (4.8-10.8)
[2023-04-24 12:05] LABS: Alanine Aminotransferase 12 U/L (0-40); Albumin Level 3.9 g/dL (3.5-5.0); Alkaline Phosphatase 92 U/L (39-117); Anion Gap 11 (12-20); Aspartate Amino Transferase 15 U/L (5-37); Bilirubin Total 0.4 mg/dL (0.0-1.0); Blood Urea Nitrogen 27 mg/dL (9-16); Calcium 9.1 mg/dL (8.4-10.2); Carbon Dioxide 24 mmol/L (22-29); Chloride 110 mmol/L (96-108); Estimated Glomerular Filt Rate 27; Glucose Random 103 mg/dL (60-115); Potassium 4.6 mmol/L (3.3-5.1); Sodium 140 mmol/L (135-145); Total Protein 6.8 g/dL (6.5-8.0)
== END 2023-04-24 09:35 | disposition home or self-care (01) ==
LOC: HO.HHCL 09:34
PROVIDERS: Visit Provider Student in an Organized Health Care Education/Training Program
DX: E87.5 Hyperkalemia (principal)
CPT/HCPCS: 36415; 80053; 85025

== ENCOUNTER → 2023-05-30 09:59 | Outpatient (BNVA) | payer OTHER, SELFPAY | PROVIDERS: PCP Internal Medicine Geriatric Medicine; Visit Provider Internal Medicine Cardiovascular Disease ==

== ENCOUNTER 2023-07-10 10:44 | Outpatient (REF) | payer OTHER, SELFPAY ==
[2023-07-10 11:26] LABS: MANUAL DIFF FLAG NO
[2023-07-10 11:45] LABS: Basophils Percent Auto 0.7 % (0-2); Eosinophils Absolute Auto 0.1 X10*3/uL (0.0-0.4); Eosinophils Percent Auto 1.7 % (0-4); Hematocrit 40.3 % (42.0-52.0); Hemoglobin 13.3 g/dl (14.0-18.0); Imm Gran Abs Auto 0.02 X10*3/uL (0.00-0.03); Imm Gran Pct Auto 0.5 % (0.0-0.4); Lymphocytes Absolute Auto 1.1 X10*3/uL (1.2-4.9); Mean Corpuscular Hemoglobin 31.8 pg (27.0-33.0); Mean Corpuscular Volume 96.4 fL (80.0-98.0); Mean Platelet Volume 11.2 fL (9.4-12.4); Monocytes Absolute Auto 0.4 X10*3/uL (0.1-1.2); Monocytes Percent Auto 8.6 % (2-11); Neutrophils Absolute Auto 2.6 x10*3/uL (2.0-8.3); Neutrophils Percent Auto 61.5 % (45-73); Platelet Count 146 X10*3/uL (160-400); Red Blood Count 4.18 X10*6/uL (4.60-5.80); Red Cell Distribution Width 12.5 % (11.0-16.0); White Blood Count 4.2 X10*3/uL (4.8-10.8)
[2023-07-10 12:38] LABS: Folate 11.6 ng/mL (> or = 4.0); Vitamin B12 352 pg/mL (200-900)
== END 2023-07-10 10:45 | disposition home or self-care (01) ==
LOC: HO.HHCL 10:44
PROVIDERS: Visit Provider Internal Medicine Geriatric Medicine
DX: D47.3 Essential (hemorrhagic) thrombocythemia (principal)
CPT/HCPCS: 36415; 82607; 82746; 85025